=== PATIENT | male | born 1960 | race Caucasian/White ===

== ENCOUNTER 2016-09-29 22:42 | Inpatient (IN) | payer SELFPAY ==
[2016-09-29] MEDS ORDERED: Sodium Chloride 0.9% 1000 ML 1,000 ML IV STA ×2 (22:58→23:14)
[2016-09-29] MEDS ORDERED: DUONEB 0.5-3 MG/3 ml Neb IH ONE ×2 (22:59→23:14)
[2016-09-29] MEDS ORDERED: Sodium Chloride 0.9% 1000 ML 1,000 ML ONE ×2 (23:03→23:20)
[2016-09-29 23:04] LABS: Mean Corpuscular Hemoglobin 29.8 pg (26-32); Mean Platelet Volume 9.3 fl (6-9.5); Platelet Count 345 K/mm3 (150-450); Red Blood Count 4.77 M/mm3 (4.1-5.6); Red Cell Distribution Width 13.8 % (11.5-14.0); White Blood Count 10.2 K/mm3 (4.0-10.5)
--- NOTE | 2016-09-29 23:05 | ERPHSYRPT ---
- History of Present Illness Time Seen by Provider: 09/29/16 22:54 Source: patient Exam Limitations: no limitations Patient Subjective Stated Complaint: Pt sts sick since Friday with increasing shortness of breath with exertion. Sts productive cough with brown sputum. Sts general malaise, cough, fever, chills, aches. Tylenol at home 0900. Hx of smoking x 40 years. Triage Nursing Assessment: Pt alert, oriented, answers questions appropriately. Skin pale, warm, dry. Resps non-labored. Pt able to transfer self wheelchair to bed. Steady gait noted. Lung sound diminished bases bilat with rhonchi rt upper and lower lobes. SPO2 90% room air. Physician History: 56-year-old white male with history of high blood pressure. Arrives with complaint of cough productive of brown sputum short of breath worse with activity fever symptoms for 2-3 days. Patient states "I feel sick. Past medical history includes high blood pressure. Past surgical history negative. Social history positive for tobacco use. Timing/Duration: day(s) (2-3 days) Severity: moderate Modifying Factors: Improves With: nothing Associated Symptoms: shortness of breath, cough, fever, No nausea, No vomiting, No abdominal pain, No heartburn, No diaphoresis, No chills, No chest pain, No headaches, No loss of appetite, No malaise, No rash, No syncope Allergies/Adverse Reactions: Penicillins Allergy (Verified 09/29/16 22:54) Home Medications: Aspirin 81 mg PO DAILY 09/29/16 [History] Cetirizine HCl [Zyrtec] 10 mg PO HS 09/29/16 [History] Diltiazem HCl [Cardizem Cd] 120 mg PO DAILY 09/29/16 [History] Losartan Potassium 50 mg PO HS 09/29/16 [History] Trazodone HCl 100 mg PO HS 09/29/16 [History] Hx Tetanus, Diphtheria Vaccination/Date Given: Yes Hx Influenza Vaccination/Date Given: No Hx Pneumococcal Vaccination/Date Given: No - Review of Systems Constitutional: Fever, Malaise, Weakness, No Chills, No Fatigue, No Lethargy, No Night Sweats, No Weight Loss Eyes: No Symptoms Ears, Nose, & Throat: No Symptoms Respiratory: Cough, Dyspnea, Dyspnea on Exertion (KAUR), No Cyanosis, No Stridor , No Wheezing Cardiac: No Chest Pain, No Edema, No Syncope Abdominal/Gastrointestinal: No Abdominal Pain, No Nausea, No Vomiting, No Diarrhea Genitourinary Symptoms: No Dysuria Musculoskeletal: No Back Pain, No Neck Pain Skin: No Rash Neurological: No Dizziness, No Focal Weakness, No Sensory Changes Psychological: No Symptoms Endocrine: No Symptoms All Other Systems: Reviewed and Negative - Past Medical History Pertinent Past Medical History: Yes Cardiac History: Hypertension Other Medical History: allergies - Past Surgical History Past Surgical History: No - Social History Smoking Status: Current every day smoker How long have you smoked: 40 yrs Exposure to second hand smoke: No Drug Use: none Patient Lives Alone: No - Nursing Vital Signs Nursing Vital Signs: Initial Vital Signs Temperature 100.3 F Temperature Source Oral Pulse Rate 89 Respiratory Rate 24 Blood Pressure [Right Arm] 121/70 Pain Intensity 8 - Physical Exam General Appearance: moderate distress, other (well-developed well-nourished white male, alert, oriented x 3) Eye Exam: PERRL/EOMI, eyes nml inspection Ears, Nose, Throat Exam: normal ENT inspection, TMs normal, moist mucous membranes, pharyngeal erythema Neck Exam: normal inspection, non-tender, supple, full range of motion Respiratory Exam: diminished breath sounds, wheezing, No chest tenderness, No lungs clear Cardiovascular Exam: regular rate/rhythm (we'll probably do), normal heart sounds, normal peripheral pulses Gastrointestinal/Abdomen Exam: soft, normal bowel sounds, No tenderness, No mass Back Exam: normal inspection, normal range of motion, No CVA tenderness, No vertebral tenderness Extremity Exam: normal inspection, normal range of motion, pelvis stable Neurologic Exam: alert, oriented x 3, cooperative, normal mood/affect, nml cerebellar function, nml station & gait, sensation nml, No motor deficits Skin Exam: normal color, warm, dry, No rash Lymphatic Exam: No adenopathy SpO2 Interpretation: borderline oxygenation (90%) SpO2: 90 Oxygen Delivery: Room Air - Course Nursing assessment & vital signs reviewed: Yes EKG Interpreted by Me: RATE (99 bpm), Sinus Rhythm, NORMAL AXIS, Other (EKG: Sinus rhythm 99 bpm normal axis. No acute ST or T wave changes noted) - Radiology Exams Chest X-ray Interpretation: Interpreted by me, Other (chest x-ray: Large right middle lobe and right upper lobe infiltrate) Ordered Tests: Active Orders 24 hr Category Date Time Status Bedrest with BRP/BSC ROUTINE Activity 09/30/16 00:56 Active Admission/Status Order ROUTINE Care 09/30/16 00:56 Active Call Admit Doctor for Orders ON ADMISSION Care 09/30/16 00:56 Active Hand Flatwork Finisher STAT Care 09/29/16 22:57 Completed Clean Catch Urine Specimen STAT Care 09/30/16 00:26 Completed Code Status Order ROUTINE Care 09/30/16 00:56 Active EKG-ER Only STAT Care 09/29/16 22:56 Completed IV Care Q6H Care 09/30/16 00:56 Active IV Insertion STAT Care 09/29/16 22:58 Completed IV Insertion STAT Care 09/29/16 23:00 Completed Oxygen-ED Only NASAL CANNULA 4 lpm Care 09/29/16 23:37 Completed Pulse Oximetry (ED) STAT Care 09/29/16 22:57 Completed Saline Lock STAT Care 09/29/16 22:57 Completed Telemetry ROUTINE Care 09/30/16 00:56 Active Weight,Daily 0600 Care 09/30/16 00:56 Active Regular Diet Diet 09/30/16 Breakfast Active CHEST 1 VIEW (PORTABLE) Stat Exams 09/29/16 22:57 Taken BLOOD CULTURE Stat Lab 09/29/16 23:07 Received CBC W DIFF AM.LAB Lab 09/30/16 04:00 Ordered CBC W DIFF Stat Lab 09/29/16 22:45 Completed CMP AM.LAB Lab 09/30/16 04:00 Ordered CMP Stat Lab 09/29/16 22:45 Completed CULTURE, THROAT Stat Lab 09/29/16 23:15 Received CULTURE,URINE Stat Lab 09/29/16 22:57 Received Lactic Acid Stat Lab 09/29/16 22:57 Completed Lactic Acid Urgent Lab 09/30/16 00:56 Ordered Manual Differential NC Stat Lab 09/29/16 22:45 Completed NT PRO BNP Stat Lab 09/29/16 22:45 Completed PROTIME WITH INR Stat Lab 09/29/16 22:45 Completed PTT Stat Lab 09/29/16 22:45 Completed STREP SCREEN-BETA A Stat Lab 09/29/16 23:15 Completed TROPONIN Stat Lab 09/29/16 22:45 Completed UA W/ MICROSCOPIC Stat Lab 09/30/16 00:20 Completed VENOUS BLOOD GAS Stat Lab 09/29/16 22:58 Completed Oxygen NASAL CANNULA 4 lpm RT 09/30/16 00:56 Active Respiratory Nebulizer STAT RT 09/29/16 23:00 Completed Transfer Order Routine Transfer 09/30/16 00:07 Completed Medication Summary Generic Name Dose Route Start Last Admin Trade Name Serafin PRN Reason Stop Dose Admin Acetaminophen 650 mg 09/30/16 00:56 Tylenol 325 Mg PO 10/30/16 00:55 Q4H PRN PRN PAIN AND/OR FEVER Hydrocodone Bitart/Acetaminophen 1 tab 09/30/16 01:03 [place] 5/325 Mg PO 10/05/16 01:02 Q4H PRN PRN PAIN Albuterol/Ipratropium 3 ml 09/30/16 00:56 Duoneb 0.5-3 Mg/3 Ml Neb IH 10/30/16 00:55 Q4HPRN PRN SHORTNESS OF BREATH/WHEEZING Azithromycin 500 mg in 250 mls @ 250 mls/hr 09/30/16 10:00 09/30/16 01:13 Zithromax 500 Mg/ 250 Ml Nacl Premix IV 10/30/16 09:59 250 mls/hr Q24H10 REFUGIO Administration Piperacillin Sod/Tazobactam Sod 3.375 gm in 100 mls @ 200 mls/hr 09/30/16 06: 00 Zosyn 3.375gm/100 Ml D5w IV 10/30/16 05:59 Q6HT REFUGIO Sodium Chloride 1,000 mls @ 125 mls/hr 09/30/16 00:56 09/30/16 01:05 Sodium Chloride 0.9% 1000 Ml IV 10/30/16 00:55 125 mls/hr .Q8H REFUGIO Administration Discontinued Medications Generic Name Dose Route Start Last Admin Trade Name Serafin PRN Reason Stop Dose Admin Hydrocodone Bitart/Acetaminophen Confirm 09/30/16 00:33 [place] 5/325 Mg Administered 09/30/16 00:34 Dose 1 tab .ROUTE .STK-MED ONE Albuterol/Ipratropium 3 ml 09/29/16 22:59 09/29/16 23:17 Duoneb 0.5-3 Mg/3 Ml Neb IH 09/29/16 23:00 3 ml STAT ONE Administration Albuterol/Ipratropium Confirm 09/29/16 23:14 Duoneb 0.5-3 Mg/3 Ml Neb Administered 09/29/16 23:15 Dose 3 ml IH .STK-MED ONE Sodium Chloride 1,000 mls @ 999 mls/hr 09/29/16 22:58 09/29/16 23:04 Sodium Chloride 0.9% 1000 Ml IV 09/29/16 23:58 999 mls/hr .Q1H1M STA Administration Sodium Chloride Confirm 09/29/16 23:03 Sodium Chloride 0.9% 1000 Ml Administered 09/29/16 23:04 Dose 1,000 mls @ ud .ROUTE .STK-MED ONE Sodium Chloride 1,000 mls @ 999 mls/hr 09/29/16 23:14 09/29/16 23:20 Sodium Chloride 0.9% 1000 Ml IV 09/30/16 00:14 999 mls/hr .Q1H1M STA Administration Sodium Chloride Confirm 09/29/16 23:20 Sodium Chloride 0.9% 1000 Ml Administered 09/29/16 23:21 Dose 1,000 mls @ ud .ROUTE .STK-MED ONE Piperacillin Sod/Tazobactam Sod 3.375 gm in 100 mls @ 200 mls/hr 09/29/16 23: 33 09/29/16 23:47 Zosyn 3.375gm/100 Ml D5w IV 09/30/16 00:02 200 mls/hr STAT STA Administration Piperacillin Sod/Tazobactam Sod Confirm 09/29/16 23:43 Zosyn 3.375gm/100 Ml D5w Administered 09/29/16 23:44 Dose 3.375 gm in 100 mls @ ud IV .STK-MED ONE Lab/Rad Data: Laboratory Result Diagrams 09/29/16 22:45 09/29/16 22:45 Laboratory Results 09/30/16 09/29/16 09/29/16 Range/Units 00:20 23:15 22:58 WBC (4.0-10.5) K/mm3 RBC (4.1-5.6) M/mm3 Hgb (12.5-18.0) gm/dl Hct (42-50) % MCV (78-100) fl MCH (26-32) pg MCHC (32-36) g/dl RDW (11.5-14.0) % Plt Count (150-450) K/mm3 MPV (6-9.5) fl Segmented Neutrophils (36.-66.) % Lymphocytes (Manual) (24-44) % Monocytes (Manual) (0.0-12.0) % Eosinophils (Manual) (0.00-3.0) % Differential Comment Atypical Lymphocytes % Platelet Estimate (NORMAL) INR (0.8-3.0) APTT (24.1-36.1) SECONDS VBG pH 7.30 L (7.32-7.42) VBG pCO2 at Pat Temp 55 (42-55) mm/Hg VBG pO2 at Pat Temp 14 L (25-40) mm/Hg VBG HCO3 27.1 (22-28) meq/L VBG O2 Sat (Otilia) 19.5 L (95-100) VBG Base Excess -0.5 (-2.0-2.0) VBG Hemoglobin 15.2 VBG Carboxyhemoglobin 1.7 (0.0-6.9) % T HGB POC Potassium 5.4 H (3.5-5.1) Sodium (136-145) mEq/L Potassium (3.5-5.1) mEq/L Chloride (98-107) mEq/L Carbon Dioxide (21-32) mEq/L Anion Gap (5-15) MEQ/L BUN (9-20) mg/dL Creatinine (0.55-1.30) mg/dl Estimated GFR ML/MIN Glucose (70-110) MG/DL Lactic Acid (0.4-2.0) Calcium (8.5-10.1) mg/dL Total Bilirubin (0.2-1.0) mg/dL AST (15-37) U/L ALT (12-78) U/L Alkaline Phosphatase (46-116) U/L Troponin I (0.000-0.056) ng/ml NT-Pro-B Natriuret Pep (0-125) pg/ml Serum Total Protein (6.4-8.2) gm/dL Albumin (3.4-5.0) g/dL Ur Collection Type CLEAN CATCH Urine Color CHRISTEL (YELLOW) Urine Appearance SLIGHTLY CLOUDY (CLEAR) Urine pH 5.0 (5-6) Ur Specific [place] 1.015 (1.005-1.025) Urine Protein 30 (Negative) Urine Ketones NEGATIVE (NEGATIVE) Urine Blood 250 (0-5) Steve/ul Urine Nitrite NEGATIVE (NEGATIVE) Urine Bilirubin NEGATIVE (NEGATIVE) Urine Urobilinogen NORMAL (0-1) mg/dL Ur Leukocyte Esterase TRACE (NEGATIVE) Urine Microscopic RBC 10-15 (0-2) /HPF Urine Microscopic WBC 2-5 (0-5) /HPF Ur Epithelial Cells MODERATE (FEW) /HPF Urine Bacteria FEW (NEGATIVE) /HPF Hyaline Casts 2-5 (0-2) /LPF Urine Mucus MODERATE (NEGATIVE) /HPF Urine Glucose NEGATIVE (NEGATIVE) mg/dL Streptococcus Screen NEGATIVE (Negative) Specimen Received 09/30/16:0020 09/29/16 09/29/16 09/29/16 Range/Units 22:57 22:45 22:45 WBC (4.0-10.5) K/mm3 RBC (4.1-5.6) M/mm3 Hgb (12.5-18.0) gm/dl Hct (42-50) % MCV (78-100) fl MCH (26-32) pg MCHC (32-36) g/dl RDW (11.5-14.0) % Plt Count (150-450) K/mm3 MPV (6-9.5) fl Segmented Neutrophils (36.-66.) % Lymphocytes (Manual) (24-44) % Monocytes (Manual) (0.0-12.0) % Eosinophils (Manual) (0.00-3.0) % Differential Comment Atypical Lymphocytes % Platelet Estimate (NORMAL) INR 1.52 (0.8-3.0) APTT 32.1 (24.1-36.1) SECONDS VBG pH (7.32-7.42) VBG pCO2 at Pat Temp (42-55) mm/Hg VBG pO2 at Pat Temp (25-40) mm/Hg VBG HCO3 (22-28) meq/L VBG O2 Sat (Otilia) (95-100) VBG Base Excess (-2.0-2.0) VBG Hemoglobin VBG Carboxyhemoglobin (0.0-6.9) % T HGB POC Potassium (3.5-5.1) Sodium 139 (136-145) mEq/L Potassium 5.5 H (3.5-5.1) mEq/L Chloride 101 (98-107) mEq/L Carbon Dioxide 26.6 (21-32) mEq/L Anion Gap 16.5 H (5-15) MEQ/L BUN 34 H (9-20) mg/dL Creatinine 2.77 H (0.55-1.30) mg/dl Estimated GFR 25 ML/MIN Glucose 96 (70-110) MG/DL Lactic Acid 4.6 H (0.4-2.0) Calcium 9.3 (8.5-10.1) mg/dL Total Bilirubin 0.70 (0.2-1.0) mg/dL AST 13 L (15-37) U/L ALT 15 (12-78) U/L Alkaline Phosphatase 79 (46-116) U/L Troponin I < 0.017 (0.000-0.056) ng/ml NT-Pro-B Natriuret Pep 3689 H (0-125) pg/ml Serum Total Protein 7.4 (6.4-8.2) gm/dL Albumin 2.9 L (3.4-5.0) g/dL Ur Collection Type Urine Color (YELLOW) Urine Appearance (CLEAR) Urine pH (5-6) Ur Specific [place] (1.005-1.025) Urine Protein (Negative) Urine Ketones (NEGATIVE) Urine Blood (0-5) Steve/ul Urine Nitrite (NEGATIVE) Urine Bilirubin (NEGATIVE) Urine Urobilinogen (0-1) mg/dL Ur Leukocyte Esterase (NEGATIVE) Urine Microscopic RBC (0-2) /HPF Urine Microscopic WBC (0-5) /HPF Ur Epithelial Cells (FEW) /HPF Urine Bacteria (NEGATIVE) /HPF Hyaline Casts (0-2) /LPF Urine Mucus (NEGATIVE) /HPF Urine Glucose (NEGATIVE) mg/dL Streptococcus Screen (Negative) Specimen Received 09/29/16 Range/Units 22:45 WBC 10.2 (4.0-10.5) K/mm3 RBC 4.77 (4.1-5.6) M/mm3 Hgb 14.2 (12.5-18.0) gm/dl Hct 43.9 (42-50) % MCV 92.0 (78-100) fl MCH 29.8 (26-32) pg MCHC 32.3 (32-36) g/dl RDW 13.8 (11.5-14.0) % Plt Count 345 (150-450) K/mm3 MPV 9.3 (6-9.5) fl Segmented Neutrophils 86 H (36.-66.) % Lymphocytes (Manual) 6 L (24-44) % Monocytes (Manual) 5 (0.0-12.0) % Eosinophils (Manual) 1 (0.00-3.0) % Differential Comment NORMAL Atypical Lymphocytes 2 % Platelet Estimate NORMAL (NORMAL) INR (0.8-3.0) APTT (24.1-36.1) SECONDS VBG pH (7.32-7.42) VBG pCO2 at Pat Temp (42-55) mm/Hg VBG pO2 at Pat Temp (25-40) mm/Hg VBG HCO3 (22-28) meq/L VBG O2 Sat (Otilia) (95-100) VBG Base Excess (-2.0-2.0) VBG Hemoglobin VBG Carboxyhemoglobin (0.0-6.9) % T HGB POC Potassium (3.5-5.1) Sodium (136-145) mEq/L Potassium (3.5-5.1) mEq/L Chloride (98-107) mEq/L Carbon Dioxide (21-32) mEq/L Anion Gap (5-15) MEQ/L BUN (9-20) mg/dL Creatinine (0.55-1.30) mg/dl Estimated GFR ML/MIN Glucose (70-110) MG/DL Lactic Acid (0.4-2.0) Calcium (8.5-10.1) mg/dL Total Bilirubin (0.2-1.0) mg/dL AST (15-37) U/L ALT (12-78) U/L Alkaline Phosphatase (46-116) U/L Troponin I (0.000-0.056) ng/ml NT-Pro-B Natriuret Pep (0-125) pg/ml Serum Total Protein (6.4-8.2) gm/dL Albumin (3.4-5.0) g/dL Ur Collection Type Urine Color (YELLOW) Urine Appearance (CLEAR) Urine pH (5-6) Ur Specific [place] (1.005-1.025) Urine Protein (Negative) Urine Ketones (NEGATIVE) Urine Blood (0-5) Steve/ul Urine Nitrite (NEGATIVE) Urine Bilirubin (NEGATIVE) Urine Urobilinogen (0-1) mg/dL Ur Leukocyte Esterase (NEGATIVE) Urine Microscopic RBC (0-2) /HPF Urine Microscopic WBC (0-5) /HPF Ur Epithelial Cells (FEW) /HPF Urine Bacteria (NEGATIVE) /HPF Hyaline Casts (0-2) /LPF Urine Mucus (NEGATIVE) /HPF Urine Glucose (NEGATIVE) mg/dL Streptococcus Screen (Negative) Specimen Received - Progress Progress: improved Progress Note: 09/29/16 23:58 This is a 56-year-old white male with history of high blood pressure arrives with complaint of cough productive of brown sputum shortness of breath general malaise fever symptoms going on for 2-3 days. On arrival patient oxygenation is 90% on room air he has a temperature of 100.1 blood pressure is 95/60 he has rhonchi throughout his lung tony wheezes and somewhat diminished breath sounds. Patient is given albuterol treatment CBC CMP lactate venous gases blood cultures UA INR PT PTT obtained per sepsis protocol. Patient begun on IV normal saline 2 L of normal saline were ordered. Patient was given DuoNeb treatment after blood cultures are obtained patient is given Zosyn 3.375 mg IV. Patient appears to be improving. Chest x-ray on this patient shows a large right middle lobe right upper lobe infiltrate. Patient is noted to have a lactate of 4.6. Case is discussed with Dr. Pineda who is geographic information system analyst for Dr. Wei will place patient on ICU continue IV fluids continue Zosyn continue duo neb. Anticipate lactate 2 hours after last draw. 09/30/16 00:21 Dr. Pineda called back and asked that patient be placed on Zithromax as well. Patient has already been given Zosyn. Will write continuing Zosyn on the floor every 6 hours and Zithromax 500 mg IV every 24 hours. Will write for IV normal saline write for DuoNeb every 4 hours. Repeat lactate is scheduled for 1:00. 09/30/16 01:21 Patient's vitals are reassessed by the patient's nurse at 23:50 Patient's temperature 100.3 heart rate 101 blood pressure 107/77 respiratory rate 92% oxygen 94% on 4 L. Patient has good capillary refill and he is in no acute distress on recheck. - Departure Time of Disposition: 00:02 Departure Disposition: In-patient Admission Clinical Impression: Shortness of breath Pneumonia Qualifiers: Pneumonia type: due to unspecified organism Laterality: right Lung location: unspecified part of lung Qualified Code(s): J18.9 - Pneumonia, unspecified organism Sepsis Qualifiers: Sepsis type: sepsis due to unspecified organism Qualified Code(s): A41.9 - Sepsis, unspecified organism Condition: Fair Critical Care Time: Yes Critical Care Time(excluding separately billable procedures): 30-74 minutes
[2016-09-29 23:11] LABS: Lactic Acid 4.6 (0.4-2.0)
[2016-09-29 23:12] LABS: VBG BASE EXCESS -0.5 (-2.0-2.0); VBG CARBOXYHEMOGLOBIN 1.7 % T HGB (0.0-6.9); VBG HCO3- 27.1 meq/L (22-28); VBG HEMOGLOBIN 15.2; VBG O2 SATURATION 19.5 (95-100); VBG POTASSIUM 5.4 (3.5-5.1); VBG pH 7.3 (7.32-7.42)
[2016-09-29 23:15] LABS: INR 1.52 (0.8-3.0); PROTIME 17.3 SECONDS (8.83-12.87)
[2016-09-29 23:18] LABS: PTT 32.1 SECONDS (24.1-36.1)
[2016-09-29 23:30] LABS: ALBUMIN 2.9 g/dL (3.4-5.0); ALKALINE PHOSPHATASE 79 U/L (46-116); ANION GAP 16.5 MEQ/L (5-15); BLOOD UREA NITROGEN 34 mg/dL (9-20); CHLORIDE 101 mEq/L (98-107); Carbon Dioxide 26.6 mEq/L (21-32); Glucose 96 MG/DL (70-110); Potassium 5.5 mEq/L (3.5-5.1); SGOT/AST 13 U/L (15-37); SGPT/ALT 15 U/L (12-78); SODIUM 139 mEq/L (136-145); Total Protein 7.4 gm/dL (6.4-8.2)
[2016-09-29] MEDS ORDERED: Zosyn 3.375GM/100 Ml D5W 3.375 GM/100 ML IVPB IV STA (23:33)
[2016-09-29] MEDS ORDERED: Zosyn 3.375GM/100 Ml D5W 3.375 GM/100 ML IVPB IV ONE (23:43)
[2016-09-29 23:44] LABS: TROPONIN < 0.017 ng/ml (0.000-0.056)
[2016-09-29 23:54] LABS: ATYPICAL LYMPHS 2 %; Eosinophil 1 % (0.00-3.0); Platelet Estimate NORMAL (NORMAL); Total Cells Counted 100
[2016-09-30 00:33] LABS: Bacteria FEW /HPF (NEGATIVE); Bilirubin NEGATIVE (NEGATIVE); Blood 250 Ery/ul (0-5); COMPLETE URINE MICROSCOPIC? YES; Collection Type CLEAN CATCH; Epithelial Cells MODERATE /HPF (FEW); Glucose NEGATIVE (NEGATIVE); Leukocyte Esterase TRACE (NEGATIVE); Mucus MODERATE /HPF (NEGATIVE)
[2016-09-30] MEDS ORDERED: NORCO 5/325 MG ONE (00:33)
[2016-09-30] MEDS ORDERED: DUONEB 0.5-3 MG/3 ml Neb IH PRN (00:56)
[2016-09-30] MEDS ORDERED: Sodium Chloride 0.9% 1000 ML 1,000 ML IV SCH ×2 (00:56→01:45)
[2016-09-30] MEDS ORDERED: Zithromax 500 MG/ 250 ML NaCl Premix 500 MG/250 ML IVPB IV ONE (01:11)
[2016-09-30 01:18] LABS: A-aADO2 601; ALLEN TEST OK? YES; ARTERIAL BLD GAS O2 SATURATION 93.8 % (95-100); ARTERIAL BLOOD GAS BASE EXCESS -1.8 (-2.0-2.0); ARTERIAL BLOOD GAS FIO2 100 %; ARTERIAL BLOOD GAS PO2 60 mmHg (75-100); ARTERIAL BLOOD GAS pH 7.36 (7.35-7.45)
[2016-09-30] MEDS: TYLENOL 325 MG PO PRN ×2 (01:57→11:47)
[2016-09-30] MEDS ORDERED: Zosyn 3.375GM/100 Ml D5W 3.375 GM/100 ML IVPB IV ONE (05:25)
[2016-09-30] MEDS ORDERED: PROTONIX 40 MG IV IV SCH (05:45)
[2016-09-30] MEDS ORDERED: solu-CORTEF 100MG IV SCH (05:45)
[2016-09-30 05:48] LABS: Mean Cell Volume 92.4 fl (78-100); Mean Corpuscular Hemoglobin 29.8 pg (26-32); Mean Platelet Volume 9.7 fl (6-9.5); Platelet Count 304 K/mm3 (150-450); Red Blood Count 4.09 M/mm3 (4.1-5.6); Red Cell Distribution Width 13.8 % (11.5-14.0); White Blood Count 8.9 K/mm3 (4.0-10.5)
--- NOTE | 2016-09-30 05:51 | PCM.HP ---
History of Present Illness - Chief Complaint Chief Complaint: Shortness of Breath, pneunmonia Date: 09/30/16 History of Present Illness: is a 56 year old male. with history of hypertension who has been devloping increaseing cough and weakness productive of rust colored sputum starting friday very weak and fatigued and short of breath eventually allowed his to bring him to ED last night. No previous pneumonia no recent travel. - Review of Systems Constitutional: Fever, Chills, Fatigue, Lethargy Eyes: No Symptoms Ears, Nose, & Throat: No Symptoms Respiratory: Cough, Short Of Breath Cardiac: No Chest Pain, No Edema, No Syncope Abdominal/Gastrointestinal: No Abdominal Pain, No Nausea, No Vomiting, No Diarrhea Genitourinary Symptoms: No Dysuria Musculoskeletal: No Back Pain, No Neck Pain Skin: No Rash Neurological: No Dizziness, No Focal Weakness, No Sensory Changes Psychological: No Symptoms Endocrine: No Symptoms Hematologic/Lymphatic: No Symptoms Immunological/Allergic: No Symptoms Medications & Allergies Home Medications: Home Medication List Aspirin 81 mg PO DAILY 09/29/16 [History Confirmed 09/29/16] Cetirizine HCl [Zyrtec] 10 mg PO HS 09/29/16 [History Confirmed 09/29/16] Diltiazem HCl [Cardizem Cd] 120 mg PO DAILY 09/29/16 [History Confirmed 09/29/16 ] Losartan Potassium 50 mg PO HS 09/29/16 [History Confirmed 09/29/16] Trazodone HCl 100 mg PO HS 09/29/16 [History Confirmed 09/29/16] Allergies/Adverse Reactions: Allergies Allergy/AdvReac Type Severity Reaction Status Date / Time Penicillins Allergy Verified 09/29/16 22:54 - Past Medical History Past Medical History: Yes Cardiac History: Hypertension Comment: allergies - Past Surgical History Past Surgical History: No - Social History Smoking Status: Current every day smoker How long have you smoked: 40 yrs Exposure to second hand smoke: No Alcohol: None Drug Use: none - Physical Exam Vital Signs: Vital Signs - 24 hr Temp Pulse Resp BP Pulse Ox 09/30/16 04:54 78 18 95 09/30/16 04:48 89/56 09/30/16 04:16 81/51 09/30/16 04:00 99.0 F 101 H 21 80/54 97 09/30/16 03:29 79 18 95 09/30/16 01:54 112 H 20 99 09/30/16 01:24 90 L 09/30/16 01:22 102.0 F 103 H 26 H 100/70 92 L 09/30/16 00:28 89 24 121/70 94 L 09/29/16 23:50 100.3 F 101 H 22 107/77 94 L 09/29/16 23:33 110 H 24 93/56 94 L 09/29/16 23:20 102 H 26 H 90 L 09/29/16 22:57 90 L 09/29/16 22:53 20 90 L 09/29/16 22:43 100.1 F 102 H 20 95/60 90 L Oxygen-Last 24 hours O2 Percentage 50% O2 Percentage 100% O2 Percentage 4 Liters = 36% O2 Percentage 4 Liters = 36% O2 Percentage 4 Liters = 36% O2 Percentage 4 Liters = 36% General Appearance: mild distress, alert, other (On bipap) Neurologic Exam: alert, oriented x 3, cooperative, normal mood/affect, nml cerebellar function, nml station & gait, sensation nml, No motor deficits Eye Exam: PERRL/EOMI, eyes nml inspection Ears, Nose, Throat Exam: normal ENT inspection, TMs normal, pharynx normal, moist mucous membranes Neck Exam: normal inspection, non-tender, supple, full range of motion Respiratory Exam: respiratory distress, crackles/rales (on right crackles and couars rhonchi and wheezing clear on the left) Cardiovascular Exam: regular rate/rhythm, normal heart sounds, normal peripheral pulses Gastrointestinal/Abdomen Exam: soft, normal bowel sounds, No tenderness, No mass Back Exam: normal inspection, normal range of motion, No CVA tenderness, No vertebral tenderness Extremity Exam: normal inspection, normal range of motion, pelvis stable Skin Exam: normal color, warm, dry, No rash Lymphatic Exam: No adenopathy Results - Labs Lab/Micro Results: Lab Results-Last 24 Hours 09/30/16 09/30/16 Range/Units 01:10 01:15 Puncture Site RIGHT RADIAL pCO2 42 (35-45) mmHg pO2 60 L (75-100) mmHg Base Excess -1.8 (-2.0-2.0) O2 Saturation 90.8 L (94-100) g/dF ABG pH 7.36 (7.35-7.45) ABG HCO3 23.7 (22-28) ABG O2 Sat (Measured) 93.8 L (95-100) % Martin Test YES A-a Gradient 601 a/A Ratio 0.09 Hemoglobin 12.7 Carboxyhemoglobin 2.1 (0.0-6.9) % THgb Methemoglobin 1.1 L (1.4-1.5) % Potassium 4.4 (3.5-5.1) Temperature 37.0 C POC O2 Flow Rate 100 % Lactic Acid 2.5 H (0.4-2.0) - Other Procedures and Tests Respiratory Therapy 09/30/16 01:54 BiPap/CPAP Assessment ROUTINE 09/30/16 03:29 neb [Respiratory Nebulizer] UD Assessment/Plan (1) Pneumonia Current Visit: Yes Status: Acute Qualifiers: Pneumonia type: due to unspecified organism Laterality: right Lung location: upper lobe of lung Qualified Code(s): J18.1 - Lobar pneumonia, unspecified organism Assessment & Plan: community acquired in smoker right upper lobe with severe sepsis with resulting acute kidney injury and lactic acidosis. CXR reviewed with large Right upper lobe round pneumonia vs mass initial worsened respiratory status after 30 mL/kg bolus and fluids were briefly held overnight and patient on bipap. He is tolerating bipap well with FiO2 at 50%. He had bp drop and responded to an additional 500 ml bolus normal saline. and restarted NS at 100 mL/h and MAP is currently 74. HR 100. He has good cap refill warm extremities and no edema there is no evidence of crackles on the left continue fluid bolus as tolerated Pereira for accurate I/O to be placed now he has only had 225 mL urine output dark urine in the last approximately 5 hours with the boluses. will give additional 500 mL bolus of LR change fluid to D5 1/2NS at 100mL/h repeat abg and lactic acid now and will write for repeat lactic acid and bmp for 6 hours from now add hydrocortisone for severe sepsis at 50 mg IV q6h Patient has history of hives with penicillin will change zosyn to ceftriaxone he has received 2 doses of zosyn first in ED and just finished first on floor continue the Azithromycin he has no evidence of allergic reaction at this time. He reports he thinks he has taken keflex before with no problem. add lovenox for dvt ppx and protonix for Gi ppx on steroid and lovenox The critical nature of his current illness was discussed in detail with the patient and his at bedside. The noted the patient is actually a Dr. Saucedo patient and sees him for his medical care and requested Dr. Saucedo on admission and for some reason the ER called me and placed him under Dr. Wei. Will do the above to stabilize and transfer care now to his PCP Dr. Saucedo. Code(s): J18.9 - PNEUMONIA, UNSPECIFIED ORGANISM (2) Sepsis Current Visit: Yes Status: Acute Qualifiers: Sepsis type: sepsis due to unspecified organism Qualified Code(s): A41.9 - Sepsis, unspecified organism (3) Acute kidney injury Current Visit: Yes Status: Acute Code(s): N17.9 - ACUTE KIDNEY FAILURE, UNSPECIFIED (4) Lactic acidosis Current Visit: Yes Status: Acute Code(s): E87.2 - ACIDOSIS
[2016-09-30] MEDS ORDERED: Lactated Ringers 500 ML IV ONE (05:54)
[2016-09-30] MEDS ORDERED: Zosyn 3.375GM/100 Ml D5W 3.375 GM/100 ML IVPB IV SCH (06:00)
[2016-09-30] MEDS ORDERED: Dextrose 5% -0.45 NaCl 1000 ML 1,000 ML IV SCH (06:00)
[2016-09-30 06:06] LABS: ALBUMIN 2.4 g/dL (3.4-5.0); ANION GAP 14.3 MEQ/L (5-15); BILIRUBIN,TOTAL 0.5 mg/dL (0.2-1.0); Carbon Dioxide 24.5 mEq/L (21-32); Total Protein 6.3 gm/dL (6.4-8.2)
[2016-09-30 06:10] LABS: A-aADO2 388; ARTERIAL BLD GAS O2 SATURATION 97.8 % (95-100); ARTERIAL BLOOD GAS FIO2 75 %; ARTERIAL BLOOD GAS PO2 91 mmHg (75-100); ARTERIAL BLOOD GAS pH 7.32 (7.35-7.45); BIPAP(E) 6; BIPAP(I) 12; Lactic Acid 2.5 (0.4-2.0)
[2016-09-30] MEDS ORDERED: Lactated Ringers 1,000 ML IV ONE (06:10)
[2016-09-30] MEDS ORDERED: solu-CORTEF 100MG ONE (06:10)
[2016-09-30] MEDS ORDERED: PROTONIX 40 MG IV IV ONE (06:10)
[2016-09-30 06:11] LABS: ALLEN TEST OK? YES
[2016-09-30] MEDS: DUONEB 0.5-3 MG/3 ml Neb IH SCH ×5 (06:43→22:57)
[2016-09-30 07:18] LABS: BAND 11 % (0.0-2.0); Platelet Estimate NORMAL (NORMAL); Total Cells Counted 100; Toxic Granulation 2+
[2016-09-30] MEDS: NORCO 5/325 MG PO PRN ×2 (08:37→14:17)
--- NOTE | 2016-09-30 08:43 | XRAY ---
Exam: AP portable chest film from 2301 hrs. on 09/29/2016. Comparison: Two-view chest from 08/09/2014. Indication: Fever, chills, possible sepsis. Findings: The transverse heart size is normal. There is a new, large, dense air space infiltrate occupying the upper two thirds of the right lung, although I see some mild aeration interspersed within the right lung apex. The infiltrate is most dense within the middle third of the right lung. A stable calcified granuloma is seen at the right lung base. The left lung remains clear. Respiratory tubing overlies the left lung apex. No central vascular congestion, pneumothorax, or pleural fluid is seen. The bones appear unremarkable. Impression: 1. Large, dense air space infiltrate within the right midlung field and, to a lesser extent, the right lung apex representing an unfavorable change from 08/09/2014. The appearance is most consistent with pneumonia. However, I would not be able to exclude an underlying mass lesion. Follow-up films are recommended to document complete resolution.
[2016-09-30] MEDS: ENOXAPARIN SODIUM SQ SCH (09:55)
[2016-09-30] MEDS: ECOTRIN 81 MG PO SCH (09:55)
[2016-09-30] MEDS ORDERED: NON-FORMULARY ITEM (Aspirin [Aspirin] 81 MG) PO SCH (10:00)
[2016-09-30] MEDS ORDERED: Zithromax 500 MG/ 250 ML NaCl Premix 500 MG/250 ML IVPB IV SCH ×2 (10:00→22:00)
[2016-09-30] MEDS ORDERED: ROCEPHIN 2 Gm-D5w 50ML BAG** 2 G/50 ML IVPB IV SCH (10:00)
[2016-09-30 10:50] LABS: A-aADO2 365; ARTERIAL BLD GAS O2 SATURATION 98.7 % (95-100); ARTERIAL BLOOD GAS BASE EXCESS -4.1 (-2.0-2.0); ARTERIAL BLOOD GAS FIO2 75 %; ARTERIAL BLOOD GAS PO2 109 mmHg (75-100); ARTERIAL BLOOD GAS pH 7.28 (7.35-7.45); BIPAP(E) 6; BIPAP(I) 12
[2016-09-30 10:51] LABS: ALLEN TEST OK? YES
[2016-09-30] MEDS: Sodium Chloride 0.9% 1000 ML 1,000 ML IV SCH ×5 (11:32→20:57)
[2016-09-30] MEDS: solu-CORTEF 100MG IV SCH ×3 (11:48→22:58)
[2016-09-30 12:18] LABS: ANION GAP 18.1 MEQ/L (5-15); Carbon Dioxide 21.5 mEq/L (21-32); Potassium 4.8 mEq/L (3.5-5.1)
[2016-09-30 14:34] LABS: Lactic Acid 2.4 (0.4-2.0)
[2016-09-30 14:35] LABS: A-aADO2 370; ALLEN TEST OK? YES; ARTERIAL BLD GAS O2 SATURATION 98.9 % (95-100); ARTERIAL BLOOD GAS FIO2 75 %; ARTERIAL BLOOD GAS PO2 105 mmHg (75-100); ARTERIAL BLOOD GAS pH 7.27 (7.35-7.45); BIPAP(E) 6; BIPAP(I) 14
[2016-09-30] MEDS ORDERED: Naprosyn 500 MG ONE (18:20)
[2016-09-30] MEDS: TYLENOL 325 MG PO SCH (18:21)
[2016-09-30] MEDS: NAPROSYN 375 MG PO SCH (18:25)
[2016-09-30] MEDS ORDERED: NON-FORMULARY ITEM (Cetirizine Hcl [Zyrtec] 10 MG) PO SCH (22:00)
[2016-09-30] MEDS: CLARITIN 10 MG PO SCH (22:55)
[2016-09-30] MEDS ORDERED: CARDIZEM DRIP 100 MG/100 ML D5W 100 ML IV PRN (23:44)
[2016-09-30] MEDS: Sodium Chloride 0.9% 1000 ML 1,000 ML IV STA (23:59)
[2016-10-01] MEDS: Sodium Chloride 0.9% 1000 ML 1,000 ML IV STA ×2 (00:32→01:59)
[2016-10-01] MEDS: Sodium Chloride 0.9% 1000 ML 1,000 ML IV SCH ×7 (00:33→23:20)
[2016-10-01] MEDS ORDERED: Zofran 4 MG/2 ML VIAL IV PRN (01:37)
[2016-10-01] MEDS ORDERED: Sodium Chloride 0.9% 1000 ML 1,000 ML IV STA (01:39)
[2016-10-01] MEDS ORDERED: Naprosyn 500 MG ONE (03:09)
[2016-10-01] MEDS: TYLENOL 325 MG PO SCH ×3 (03:09→18:09)
[2016-10-01] MEDS: NAPROSYN 375 MG PO SCH ×3 (03:09→18:10)
[2016-10-01] MEDS: DUONEB 0.5-3 MG/3 ml Neb IH SCH ×5 (03:24→20:34)
[2016-10-01 05:31] LABS: A-aADO2 517; ARTERIAL BLD GAS O2 SATURATION 99.1 % (95-100); ARTERIAL BLOOD GAS BASE EXCESS -5.9 (-2.0-2.0); ARTERIAL BLOOD GAS PO2 150 mmHg (75-100); ARTERIAL BLOOD GAS pH 7.33 (7.35-7.45); Lactic Acid 2.3 (0.4-2.0)
[2016-10-01 05:32] LABS: ALLEN TEST OK? YES
[2016-10-01 05:33] LABS: ARTERIAL BLOOD GAS FIO2 100 %
[2016-10-01] MEDS ORDERED: solu-CORTEF 100MG ONE (05:58)
[2016-10-01] MEDS: solu-CORTEF 100MG IV SCH ×4 (06:33→23:24)
[2016-10-01 07:30] LABS: ALKALINE PHOSPHATASE 64 U/L (46-116); ANION GAP 18.3 MEQ/L (5-15); BLOOD UREA NITROGEN 33 mg/dL (9-20); CHLORIDE 110 mEq/L (98-107); Carbon Dioxide 19.1 mEq/L (21-32); Glucose 80 MG/DL (70-110); SGOT/AST 23 U/L (15-37); SODIUM 142 mEq/L (136-145); Total Protein 4.7 gm/dL (6.4-8.2)
[2016-10-01 07:33] LABS: Mean Corpuscular Hemoglobin 30.3 pg (26-32); Platelet Count 295 K/mm3 (150-450); Red Blood Count 3.43 M/mm3 (4.1-5.6); Red Cell Distribution Width 14.3 % (11.5-14.0)
[2016-10-01 07:51] LABS: SGPT/ALT 15 U/L (12-78)
[2016-10-01] MEDS ORDERED: PHARMACY DOSING REQUIRED: VANCOMYCIN IV ONE (09:26)
[2016-10-01] MEDS ORDERED: PHARMACY DOSING REQUEST MC ONE (09:26)
[2016-10-01] MEDS ORDERED: VANCOCIN 1 GM VIAL*** 1 GM in Sodium Chloride 0.9% 250 ML 250 ML IV ONE (10:15)
--- NOTE | 2016-10-01 10:27 | XRAY ---
Exam: Two-view chest from 10/01/2016. Comparison: AP portable chest film from 09/29/2016 and two-view chest from 08/09/2014. Indication: Right upper and midlung pneumonia. Findings: Upright PA and lateral chest films are submitted for evaluation. The heart size is normal. I still see dense consolidation within the right midlung field extending into the central aspect of the right upper lung field, but there is mildly improved aeration. Less pronounced infiltrative density is seen within the peripheral right upper lobe. However, I see new mild retrocardiac airspace disease which is probably due to left lower lobe atelectasis, although pneumonic infiltrate cannot be excluded. The left hemidiaphragm is now partially obscured representing an unfavorable change. The remainder of the left lung appears clear on the PA view. A small dense calcified granuloma is again seen at the right lung base. There is moderate to marked right apical pleural thickening/scarring. I believe there is mild posterior left basilar pleural effusion. There may be slight blunting of the right posterior costophrenic angle as well. No pneumothorax is seen. No acute osseous process is seen. Impression: 1. There is mildly improved aeration within the large right upper and midlung field airspace consolidation as compared to 09/29/2016. However, the findings are still markedly abnormal and consistent with pneumonia. 2. In addition, there appears to be some developing airspace disease behind the heart at the left lung base which I believe may be due to left lower lobe atelectasis, although a second focus of pneumonic infiltrate cannot be excluded. This appears to be new from 09/29/2016. 3. In addition, I believe there is mild posterior left basilar pleural effusion. Slight blunting of the right posterior lung sulcus cannot be excluded.
[2016-10-01] MEDS: ENOXAPARIN SODIUM SQ SCH (10:43)
[2016-10-01] MEDS: PROTONIX 40 MG IV IV SCH (10:43)
[2016-10-01] MEDS: ECOTRIN 81 MG PO SCH (10:43)
[2016-10-01] MEDS: Merrem 1 GM 1 G in Sodium Chloride 100ML MINI-BAG PLUS 100 ML IV SCH ×2 (10:45→22:12)
[2016-10-01] MEDS ORDERED: Cardizem CD 120 MG PO ONE (13:00)
--- NOTE | 2016-10-01 21:54 | PCM.NOTE ---
Date and Time: 10/01/162152 Subjective Assessment: doing little better, last 24 hours events noted - Review of Systems Constitutional: No Fever, No Chills Eyes: No Symptoms Ears, Nose, & Throat: No Symptoms Respiratory: Orthopnea, Short Of Breath, Wheezing, No Cough Cardiac: No Chest Pain, No Edema, No Syncope Abdominal/Gastrointestinal: No Abdominal Pain, No Nausea, No Vomiting, No Diarrhea Genitourinary Symptoms: No Dysuria Musculoskeletal: No Back Pain, No Neck Pain Skin: No Rash Neurological: No Dizziness, No Focal Weakness, No Sensory Changes Psychological: No Symptoms Endocrine: No Symptoms Hematologic/Lymphatic: No Symptoms Immunological/Allergic: No Symptoms Objective Exam General Appearance: no apparent distress, alert Neurologic Exam: alert, oriented x 3, cooperative, normal mood/affect, nml cerebellar function, sensation nml, No motor deficits Skin Exam: normal color, warm, dry Eye Exam: PERRL, EOMI, eyes nml inspection Ears, Nose, Throat Exam: normal ENT inspection, pharynx normal, moist mucous membranes Neck Exam: normal inspection, non-tender, supple, full range of motion Respiratory Exam: diminished breath sounds, prolonged expirations, crackles/ rales, rhonchi, wheezing, No respiratory distress Cardiovascular Exam: regular rate/rhythm, normal heart sounds Gastrointestinal/Abdomen Exam: soft, No tenderness, No mass Extremity Exam: normal inspection, normal range of motion Back Exam: normal inspection, normal range of motion, No CVA tenderness, No vertebral tenderness Male Genitalia Exam: deferred Rectal Exam: deferred OBJECTIVE DATA Vital Signs: Vital Signs - 24 hr Temp Pulse Resp BP BP Pulse Ox 10/01/16 20:50 82 97/77 10/01/16 20:00 98 F 78 18 119/83 92 L 10/01/16 17:42 88 20 94 L 10/01/16 15:40 98.2 F 83 18 118/82 94 L 10/01/16 15:34 90 10/01/16 14:30 88 16 94 L 10/01/16 12:00 97.9 F 96 H 17 127/89 94 L 10/01/16 11:09 92 H 20 94 L 10/01/16 08:00 97.6 F 97 H 22 105/65 95 10/01/16 07:27 88 20 94 L 10/01/16 06:00 89 19 96/73 98 07/11/17 05:10 91 H 83/60 10/01/16 04:00 98.7 F 98 H 14 93/69 95 10/01/16 03:39 97 H 21 91/65 93 L 10/01/16 03:26 95 H 19 96 10/01/16 02:49 102 H 18 89/65 97 10/01/16 02:45 99 H 20 89/65 10/01/16 02:10 134 H 83/60 10/01/16 02:00 137 H 82/67 10/01/16 01:52 139 H 84/68 10/01/16 01:30 159 H 92/65 10/01/16 01:20 144 H 86/70 10/01/16 01:10 134 H 86/72 10/01/16 01:00 147 H 90/61 10/01/16 00:50 142 H 82/68 10/01/16 00:45 144 H 18 91/63 10/01/16 00:40 144 H 91/63 10/01/16 00:00 98.4 F 168 H 22 79/61 98 09/30/16 23:59 134 H 19 89/62 09/30/16 22:59 94 H 23 98 09/30/16 22:02 87 19 80/57 97 Oxygen-Last 24 hours O2 Percentage 6 Liters = 44% O2 Percentage 80% O2 Percentage 100% O2 Percentage 100% O2 Percentage 80% O2 Percentage 80% O2 Percentage 80% O2 Percentage 80% O2 Percentage 50% O2 Percentage 50% Pain Assessment - Last Documented Pain Intensity 0 Pain Scale Used 0-10 Pain Scale Intake and Output: Intake & Output 09/29/16 09/30/16 10/01/16 10/02/16 11:59 11:59 11:59 11:59 Intake Total 876 8107 3167 Output Total 200 1065 700 Balance 676 7042 2467 Weight 64.546 kg 70.2 kg Lab Results: Lab Results-Last 24 Hours 10/01/16 10/01/16 10/01/16 Range/Units 05:22 06:00 06:00 WBC 21.0 H (4.0-10.5) K/mm3 RBC 3.43 L (4.1-5.6) M/mm3 Hgb 10.4 L (12.5-18.0) gm/dl Hct 32.6 L (42-50) % MCV 95.0 (78-100) fl MCH 30.3 (26-32) pg MCHC 31.9 L (32-36) g/dl RDW 14.3 H (11.5-14.0) % Plt Count 295 (150-450) K/mm3 MPV 10.0 H (6-9.5) fl Puncture Site RIGHT RADIAL pCO2 37 (35-45) mmHg pO2 150 H* (75-100) mmHg Base Excess -5.9 L (-2.0-2.0) O2 Saturation 94.6 (94-100) g/dF ABG pH 7.33 L (7.35-7.45) ABG HCO3 19.5 L (22-28) ABG O2 Sat (Measured) 99.1 (95-100) % Martin Test YES A-a Gradient 517 a/A Ratio 0.22 Hemoglobin 10.8 Carboxyhemoglobin 3.4 (0.0-6.9) % THgb Methemoglobin 1.1 L (1.4-1.5) % Potassium 4.7 5.0 (3.5-5.1) Temperature 37.0 C POC O2 Flow Rate 100 % Sodium 142 (136-145) mEq/L Chloride 110 H (98-107) mEq/L Carbon Dioxide 19.1 L (21-32) mEq/L Anion Gap 18.3 H (5-15) MEQ/L BUN 33 H (9-20) mg/dL Creatinine 1.24 (0.55-1.30) mg/dl Estimated GFR > 60 ML/MIN Glucose 80 (70-110) MG/DL Lactic Acid 2.3 H (0.4-2.0) Calcium 7.4 L (8.5-10.1) mg/dL Total Bilirubin 0.20 (0.2-1.0) mg/dL AST 23 (15-37) U/L ALT 15 (12-78) U/L Alkaline Phosphatase 64 (46-116) U/L Serum Total Protein 4.7 L (6.4-8.2) gm/dL Albumin 2.0 L (3.4-5.0) g/dL Radiology Exams: Radiology Procedures Category Date Time Status CHEST 2 VIEWS (PA AND LAT) Urgent Exams 10/01/16 09:22 Completed Multi-Disciplinary Progress Notes: Multi-Disciplinary Progress Notes 10/01/16 09:29 Case Management Note by Vanessa Hernandez SPOKE WITH DR. KATHLEEN, N/O RECEIVED. REPORTS THAT HE WILL BE IN TO SEE PT DURING LUNCH HOUR. Initialized on 10/01/16 09:29 - END OF NOTE Assessment/Plan (1) Pneumonia Current Visit: Yes Status: Acute Qualifiers: Pneumonia type: due to unspecified organism Laterality: right Lung location: upper lobe of lung Qualified Code(s): J18.1 - Lobar pneumonia, unspecified organism Assessment & Plan: continue present management. Code(s): J18.9 - PNEUMONIA, UNSPECIFIED ORGANISM (2) Sepsis Current Visit: Yes Status: Acute Qualifiers: Sepsis type: sepsis due to unspecified organism Qualified Code(s): A41.9 - Sepsis, unspecified organism
[2016-10-01] MEDS: CLARITIN 10 MG PO SCH (22:12)
[2016-10-01] MEDS: SODIUM CHLORIDE 0.9% IV SCH (22:12)
[2016-10-01] MEDS: VANCOCIN IV SCH (22:12)
[2016-10-02] MEDS: DUONEB 0.5-3 MG/3 ml Neb IH SCH ×7 (00:21→23:38)
[2016-10-02] MEDS ORDERED: Cardizem CD 120 MG PO ONE ×2 (03:20→13:00)
[2016-10-02] MEDS ORDERED: Cardizem 30 MG ONE ×2 (03:30)
[2016-10-02] MEDS: TYLENOL 325 MG PO SCH ×3 (03:32→20:04)
[2016-10-02] MEDS: NAPROSYN 375 MG PO SCH ×3 (03:33→20:03)
[2016-10-02] MEDS: Sodium Chloride 0.9% 1000 ML 1,000 ML IV SCH ×2 (03:45→09:14)
[2016-10-02] MEDS: solu-CORTEF 100MG IV SCH ×3 (05:40→23:37)
[2016-10-02] MEDS: Merrem 1 GM 1 G in Sodium Chloride 100ML MINI-BAG PLUS 100 ML IV SCH ×3 (05:40→22:51)
[2016-10-02 08:06] LABS: Mean Cell Volume 90.6 fl (78-100); Mean Platelet Volume 9.8 fl (6-9.5); Platelet Count 322 K/mm3 (150-450); Red Blood Count 3.95 M/mm3 (4.1-5.6); Red Cell Distribution Width 14.6 % (11.5-14.0)
[2016-10-02 08:21] LABS: ALBUMIN 1.8 g/dL (3.4-5.0); ALKALINE PHOSPHATASE 135 U/L (46-116); ANION GAP 12.1 MEQ/L (5-15); BLOOD UREA NITROGEN 33 mg/dL (9-20); CHLORIDE 113 mEq/L (98-107); Glucose 92 MG/DL (70-110); Potassium 3.9 mEq/L (3.5-5.1); SGOT/AST 27 U/L (15-37); SGPT/ALT 19 U/L (12-78); SODIUM 143 mEq/L (136-145); Total Protein 5.6 gm/dL (6.4-8.2)
[2016-10-02 08:55] LABS: Mean Corpuscular Hemoglobin 29.8 pg (26-32); White Blood Count 33.6 K/mm3 (4.0-10.5)
[2016-10-02] MEDS: ENOXAPARIN SODIUM SQ SCH (09:15)
[2016-10-02] MEDS: ECOTRIN 81 MG PO SCH (09:15)
[2016-10-02] MEDS: Cardizem CD 120 MG PO SCH (09:15)
[2016-10-02] MEDS: VANCOCIN IV SCH ×2 (09:24→23:28)
[2016-10-02] MEDS: SODIUM CHLORIDE 0.9% IV SCH ×2 (09:24→23:28)
[2016-10-02] MEDS: PROTONIX 40 MG IV IV SCH (09:48)
[2016-10-02] MEDS ORDERED: Cardizem CD 120 MG PO SCH (10:00)
--- NOTE | 2016-10-02 10:18 | XRAY ---
Exam: AP upright portable chest film from 0935 hours on 10/02/2016. Comparison: Two-view chest from 10/01/2016 and AP portable chest film from 09/29/2016. Indication: Fluid retention, shortness of breath. Findings: The film was obtained in a lordotic projection. The heart size is normal and appears midline. There again is a prominent dense peripheral consolidation within the right mid to upper lung field consistent with pneumonia. Less pronounced hazy airspace disease is seen within the remainder of the upper two thirds of the right lung. The right lung base is remarkable only for a calcified granuloma. I suspect a small amount of bibasilar pleural fluid, left greater than right. Within the left lung, there is some new increased hazy airspace disease within the left suprahilar projection and peripheral left lower lung field. This probably is due to pulmonary edema, although pneumonia cannot be radiographically excluded. Prior dense retrocardiac airspace disease is still present, but has improved slightly. No pneumothorax is seen. No acute osseous process is seen. Impression: 1. There is interval development of hazy airspace disease, primarily within the left suprahilar projection and, to a lesser extent, the peripheral left lower lung field. It is likely that this is due to pulmonary edema, although pneumonia cannot be radiographically excluded. 2. Prior retrocardiac focally dense airspace disease may be slightly improved, but the degree of difference is not much. 3. I again see a large area of dense pneumonic consolidation within the peripheral right mid to upper lung field. In addition, there is some hazy surrounding less pronounced airspace disease within the upper two thirds of the right lung which is also likely due to pulmonary edema, although pneumonia cannot be radiographically excluded.. 4. I believe there are small bibasilar pleural effusions blunting the costophrenic angles, slightly greater on the left than right. The heart size remains normal. Note: I called this report to an ICU nurse, Di, at 10:07 AM on 10/02/2016.
[2016-10-02 10:45] LABS: BAND 12 % (0.0-2.0); Promyelocyte 1 %; Total Cells Counted 100
[2016-10-02 10:46] LABS: ANISOCYTOSIS 1+; Platelet Estimate NORMAL (NORMAL); Poikilocytosis 1+; Toxic Granulation 1+
[2016-10-02] MEDS ORDERED: Lasix 40 MG/4 ML IV ONE (14:15)
--- NOTE | 2016-10-02 19:24 | PCM.NOTE ---
Date and Time: 10/02/161922 Subjective Assessment: still short of breath, - Review of Systems Constitutional: No Fever, No Chills Eyes: No Symptoms Ears, Nose, & Throat: No Symptoms Respiratory: Orthopnea, Short Of Breath, Wheezing, No Cough Cardiac: No Chest Pain, No Edema, No Syncope Abdominal/Gastrointestinal: No Abdominal Pain, No Nausea, No Vomiting, No Diarrhea Genitourinary Symptoms: No Dysuria Musculoskeletal: No Back Pain, No Neck Pain Skin: No Rash Neurological: No Dizziness, No Focal Weakness, No Sensory Changes Psychological: No Symptoms Endocrine: No Symptoms Hematologic/Lymphatic: No Symptoms Immunological/Allergic: No Symptoms Objective Exam General Appearance: no apparent distress, alert Neurologic Exam: alert, oriented x 3, cooperative, normal mood/affect, nml cerebellar function, sensation nml, No motor deficits Skin Exam: normal color, warm, dry Eye Exam: PERRL, EOMI, eyes nml inspection Ears, Nose, Throat Exam: normal ENT inspection, pharynx normal, moist mucous membranes Neck Exam: normal inspection, non-tender, supple, full range of motion Respiratory Exam: normal breath sounds, lungs clear, diminished breath sounds, crackles/rales, rhonchi, wheezing, No respiratory distress Cardiovascular Exam: regular rate/rhythm, normal heart sounds Gastrointestinal/Abdomen Exam: soft, No tenderness, No mass Extremity Exam: normal inspection, normal range of motion Back Exam: normal inspection, normal range of motion, No CVA tenderness, No vertebral tenderness Male Genitalia Exam: deferred Rectal Exam: deferred OBJECTIVE DATA Vital Signs: Vital Signs - 24 hr Temp Pulse Resp BP Pulse Ox 10/02/16 19:03 86 14 96 10/02/16 18:00 97.6 F 71 18 116/72 95 10/02/16 17:49 96 10/02/16 16:00 63 10/02/16 14:57 80 17 95 10/02/16 14:00 97.9 F 65 17 113/71 96 10/02/16 12:00 78 10/02/16 10:39 81 19 97 10/02/16 10:00 98.2 F 67 16 119/63 96 10/02/16 08:00 87 10/02/16 07:07 83 22 95 10/02/16 06:00 121 H 28 H 113/83 94 L 10/02/16 05:00 113 H 20 99/86 94 L 10/02/16 04:00 97.6 F 120 H 21 123/86 10/02/16 03:54 120 H 10/02/16 03:45 121 H 20 120/92 94 L 10/02/16 03:15 121 H 19 118/84 94 L 10/02/16 03:07 132 H 13 93 L 10/02/16 03:00 123 H 130/87 90 L 10/02/16 02:45 111 H 129/92 89 L 10/02/16 02:00 73 18 146/78 94 L 10/02/16 01:00 71 15 122/81 94 L 10/02/16 00:21 78 20 92 L 10/02/16 00:00 98.2 F 74 17 125/82 93 L 10/01/16 23:00 72 16 121/77 91 L 10/01/16 22:00 85 16 128/83 93 L 10/01/16 21:00 73 17 122/77 93 L 10/01/16 20:50 82 97/77 10/01/16 20:00 98 F 78 18 119/83 92 L Oxygen-Last 24 hours O2 Percentage 70% O2 Percentage 70% O2 Percentage 80% O2 Percentage 80% O2 Percentage 80% O2 Percentage 80% O2 Percentage 80% O2 Percentage 80% O2 Percentage 70% O2 Percentage 50% O2 Percentage 6 Liters = 44% O2 Percentage 6 Liters = 44% O2 Percentage 6 Liters = 44% O2 Percentage 6 Liters = 44% O2 Percentage 6 Liters = 44% O2 Percentage 6 Liters = 44% O2 Percentage 6 Liters = 44% Pain Assessment - Last Documented Pain Intensity 0 Pain Scale Used 0-10 Pain Scale Intake and Output: Intake & Output 09/30/16 10/01/16 10/02/16 10/03/16 11:59 11:59 11:59 11:59 Intake Total 876 8107 6864 1690 Output Total 200 1065 1500 2200 Balance 676 2534 1360 -510 Weight 64.546 kg 70.2 kg 75.6 kg Lab Results: Lab Results-Last 24 Hours 10/02/16 10/02/16 10/02/16 Range/Units 05:00 06:30 06:48 WBC 33.6 H* (4.0-10.5) K/mm3 RBC 3.95 L (4.1-5.6) M/mm3 Hgb 11.8 L (12.5-18.0) gm/dl Hct 35.8 L (42-50) % MCV 90.6 (78-100) fl MCH 29.8 (26-32) pg MCHC 33.0 (32-36) g/dl RDW 14.6 H (11.5-14.0) % Plt Count 322 (150-450) K/mm3 MPV 9.8 H (6-9.5) fl Segmented Neutrophils 75 H (36.-66.) % Band Neutrophils 12 H (0.0-2.0) % Lymphocytes (Manual) 6 L (24-44) % Monocytes (Manual) 6 (0.0-12.0) % Promyelocytes 1 % Differential Comment ABNORMAL Toxic Granulation 1+ Platelet Estimate NORMAL (NORMAL) Poikilocytosis 1+ Anisocytosis 1+ Smear Path Review Pending Sodium 143 (136-145) mEq/L Potassium 3.9 (3.5-5.1) mEq/L Chloride 113 H (98-107) mEq/L Carbon Dioxide 22.0 (21-32) mEq/L Anion Gap 12.1 (5-15) MEQ/L BUN 33 H (9-20) mg/dL Creatinine 1.09 (0.55-1.30) mg/dl Estimated GFR > 60 ML/MIN Glucose 92 (70-110) MG/DL Lactic Acid 0.9 (0.4-2.0) Calcium 8.3 L (8.5-10.1) mg/dL Total Bilirubin 0.30 (0.2-1.0) mg/dL AST 27 (15-37) U/L ALT 19 (12-78) U/L Alkaline Phosphatase 135 H (46-116) U/L NT-Pro-B Natriuret Pep (0-125) pg/ml Serum Total Protein 5.6 L (6.4-8.2) gm/dL Albumin 1.8 L (3.4-5.0) g/dL 10/02/16 Range/Units 09:00 WBC (4.0-10.5) K/mm3 RBC (4.1-5.6) M/mm3 Hgb (12.5-18.0) gm/dl Hct (42-50) % MCV (78-100) fl MCH (26-32) pg MCHC (32-36) g/dl RDW (11.5-14.0) % Plt Count (150-450) K/mm3 MPV (6-9.5) fl Segmented Neutrophils (36.-66.) % Band Neutrophils (0.0-2.0) % Lymphocytes (Manual) (24-44) % Monocytes (Manual) (0.0-12.0) % Promyelocytes % Differential Comment Toxic Granulation Platelet Estimate (NORMAL) Poikilocytosis Anisocytosis Smear Path Review Sodium (136-145) mEq/L Potassium (3.5-5.1) mEq/L Chloride (98-107) mEq/L Carbon Dioxide (21-32) mEq/L Anion Gap (5-15) MEQ/L BUN (9-20) mg/dL Creatinine (0.55-1.30) mg/dl Estimated GFR ML/MIN Glucose (70-110) MG/DL Lactic Acid (0.4-2.0) Calcium (8.5-10.1) mg/dL Total Bilirubin (0.2-1.0) mg/dL AST (15-37) U/L ALT (12-78) U/L Alkaline Phosphatase (46-116) U/L NT-Pro-B Natriuret Pep 3411 H (0-125) pg/ml Serum Total Protein (6.4-8.2) gm/dL Albumin (3.4-5.0) g/dL Radiology Exams: Radiology Procedures Category Date Time Status CHEST 1 VIEW (PORTABLE) Stat Exams 10/02/16 09:23 Completed CHEST 2 VIEWS (PA AND LAT) Urgent Exams 10/01/16 09:22 Completed Assessment/Plan (1) Pneumonia Current Visit: Yes Status: Acute Qualifiers: Pneumonia type: due to unspecified organism Laterality: right Lung location: upper lobe of lung Qualified Code(s): J18.1 - Lobar pneumonia, unspecified organism Code(s): J18.9 - PNEUMONIA, UNSPECIFIED ORGANISM (2) Sepsis Current Visit: Yes Status: Acute Qualifiers: Sepsis type: sepsis due to unspecified organism Qualified Code(s): A41.9 - Sepsis, unspecified organism
[2016-10-02] MEDS ORDERED: TROUGH DRUG LEVELS IJ ONE (21:30)
[2016-10-02] MEDS: CLARITIN 10 MG PO SCH (22:52)
[2016-10-02] MEDS ORDERED: solu-CORTEF 100MG ONE (23:30)
[2016-10-03] MEDS: NAPROSYN 375 MG PO SCH ×3 (04:12→19:06)
[2016-10-03] MEDS: TYLENOL 325 MG PO SCH ×4 (04:13→19:06)
[2016-10-03] MEDS: Merrem 1 GM 1 G in Sodium Chloride 100ML MINI-BAG PLUS 100 ML IV SCH ×3 (05:23→22:00)
[2016-10-03] MEDS: Sodium Chloride 0.9% 1000 ML 1,000 ML IV SCH (05:34)
[2016-10-03] MEDS: DUONEB 0.5-3 MG/3 ml Neb IH SCH ×6 (05:40→23:36)
[2016-10-03] MEDS: Cardizem CD 120 MG PO SCH (10:00)
[2016-10-03] MEDS: ECOTRIN 81 MG PO SCH (10:00)
[2016-10-03] MEDS: PROTONIX 40 MG IV IV SCH (10:01)
[2016-10-03] MEDS: solu-CORTEF 100MG IV SCH ×2 (10:04→22:00)
[2016-10-03] MEDS: VANCOCIN 1 GM VIAL*** 1 GM in Sodium Chloride 0.9% 250 ML 250 ML IV SCH ×2 (10:12→23:07)
[2016-10-03] MEDS: ENOXAPARIN SODIUM SQ SCH (10:14)
--- NOTE | 2016-10-03 12:10 | PCM.NOTE ---
Date and Time: 10/03/16 1210 Subjective Assessment: doing better - Review of Systems Constitutional: No Fever, No Chills Eyes: No Symptoms Ears, Nose, & Throat: No Symptoms Respiratory: No Cough, No Short Of Breath Cardiac: No Chest Pain, No Edema, No Syncope Abdominal/Gastrointestinal: No Abdominal Pain, No Nausea, No Vomiting, No Diarrhea Genitourinary Symptoms: No Dysuria Musculoskeletal: No Back Pain, No Neck Pain Skin: No Rash Neurological: No Dizziness, No Focal Weakness, No Sensory Changes Psychological: No Symptoms Endocrine: No Symptoms Hematologic/Lymphatic: No Symptoms Immunological/Allergic: No Symptoms Objective Exam General Appearance: no apparent distress, alert Neurologic Exam: alert, oriented x 3, cooperative, normal mood/affect, nml cerebellar function, sensation nml, No motor deficits Skin Exam: normal color, warm, dry Eye Exam: PERRL, EOMI, eyes nml inspection Ears, Nose, Throat Exam: normal ENT inspection, pharynx normal, moist mucous membranes Neck Exam: normal inspection, non-tender, supple, full range of motion Respiratory Exam: diminished breath sounds, prolonged expirations, crackles/ rales, rhonchi, No respiratory distress Cardiovascular Exam: regular rate/rhythm, normal heart sounds Gastrointestinal/Abdomen Exam: soft, No tenderness, No mass Extremity Exam: normal inspection, normal range of motion Back Exam: normal inspection, normal range of motion, No CVA tenderness, No vertebral tenderness Male Genitalia Exam: deferred Rectal Exam: deferred OBJECTIVE DATA Vital Signs: Vital Signs - 24 hr Temp Pulse Resp BP Pulse Ox 10/03/16 11:20 87 20 96 10/03/16 08:18 94 L 10/03/16 08:00 97.7 F 69 21 130/79 94 L 10/03/16 07:23 73 21 96 10/03/16 04:00 72 20 131/79 94 L 10/02/16 23:54 97.8 F 77 20 114/63 95 10/02/16 23:40 75 23 96 10/02/16 20:02 98.1 F 78 17 117/71 97 10/02/16 19:39 82 10/02/16 19:03 86 14 96 10/02/16 18:00 97.6 F 71 18 116/72 95 10/02/16 17:49 96 10/02/16 16:00 63 10/02/16 14:57 80 17 95 10/02/16 14:00 97.9 F 65 17 113/71 96 Oxygen-Last 24 hours O2 Percentage 5 Liters = 40% O2 Percentage 50% O2 Percentage 50% O2 Percentage 50% O2 Percentage 70% O2 Percentage 70% Pain Assessment - Last Documented Pain Intensity 0 Pain Scale Used 0-10 Pain Scale Intake and Output: Intake & Output 10/01/16 10/02/16 10/03/16 10/04/16 11:59 11:59 11:59 11:59 Intake Total 8135 5873 3074 Output Total 1065 1500 3200 Balance 7042 5364 -126 Weight 70.2 kg 75.6 kg 76.1 kg Lab Results: Lab Results-Last 24 Hours 10/02/16 10/02/16 Range/Units 06:30 21:59 WBC 33.6 H* (4.0-10.5) K/mm3 RBC 3.95 L (4.1-5.6) M/mm3 Hgb 11.8 L (12.5-18.0) gm/dl Hct 35.8 L (42-50) % MCV 90.6 (78-100) fl MCH 29.8 (26-32) pg MCHC 33.0 (32-36) g/dl RDW 14.6 H (11.5-14.0) % Plt Count 322 (150-450) K/mm3 MPV 9.8 H (6-9.5) fl Segmented Neutrophils 75 H (36.-66.) % Band Neutrophils 12 H (0.0-2.0) % Lymphocytes (Manual) 6 L (24-44) % Monocytes (Manual) 6 (0.0-12.0) % Promyelocytes 1 % Differential Comment ABNORMAL Toxic Granulation 1+ Platelet Estimate NORMAL (NORMAL) Poikilocytosis 1+ Anisocytosis 1+ Smear Path Review Vancomycin Trough 9.8 L (10-20) UG/ML Radiology Exams: Radiology Procedures Category Date Time Status CHEST 1 VIEW (PORTABLE) Stat Exams 10/02/16 09:23 Completed CHEST 2 VIEWS (PA AND LAT) Routine Exams 10/04/16 08:00 Ordered Assessment/Plan (1) Pneumonia Current Visit: Yes Status: Acute Qualifiers: Pneumonia type: due to unspecified organism Laterality: right Lung location: upper lobe of lung Qualified Code(s): J18.1 - Lobar pneumonia, unspecified organism Code(s): J18.9 - PNEUMONIA, UNSPECIFIED ORGANISM (2) Sepsis Current Visit: Yes Status: Acute Qualifiers: Sepsis type: Streptococcus, unspecified Qualified Code(s): A40.9 - Streptococcal sepsis, unspecified; A40 - Streptococcal sepsis
[2016-10-03] MEDS: Ativan 1 MG PO PRN (18:09)
[2016-10-03] MEDS: Nicoderm CQ 21 MG TOP SCH (18:53)
[2016-10-03] MEDS: CLARITIN 10 MG PO SCH (22:00)
[2016-10-04] MEDS: DUONEB 0.5-3 MG/3 ml Neb IH SCH ×6 (02:53→22:37)
[2016-10-04] MEDS: TYLENOL 325 MG PO SCH ×3 (03:05→18:04)
[2016-10-04] MEDS: NAPROSYN 375 MG PO SCH ×3 (03:06→18:04)
[2016-10-04] MEDS: Sodium Chloride 0.9% 1000 ML 1,000 ML IV SCH (04:21)
[2016-10-04 05:43] LABS: Mean Cell Volume 89.1 fl (78-100); Mean Platelet Volume 9.6 fl (6-9.5); Platelet Count 362 K/mm3 (150-450); Red Blood Count 3.77 M/mm3 (4.1-5.6); Red Cell Distribution Width 14.9 % (11.5-14.0); White Blood Count 20.9 K/mm3 (4.0-10.5)
[2016-10-04 05:49] LABS: Mean Corpuscular Hemoglobin 29.9 pg (26-32)
[2016-10-04] MEDS: Merrem 1 GM 1 G in Sodium Chloride 100ML MINI-BAG PLUS 100 ML IV SCH ×3 (05:56→22:17)
[2016-10-04 06:15] LABS: ANION GAP 11.3 MEQ/L (5-15); BLOOD UREA NITROGEN 26 mg/dL (9-20); CHLORIDE 107 mEq/L (98-107); Carbon Dioxide 28.3 mEq/L (21-32); Glucose 133 MG/DL (70-110); Potassium 3.3 mEq/L (3.5-5.1); SODIUM 143 mEq/L (136-145)
--- NOTE | 2016-10-04 08:52 | PCM.NOTE ---
Date and Time: 10/04/16 0851 Subjective Assessment: doing better - Review of Systems Constitutional: No Fever, No Chills Eyes: No Symptoms Ears, Nose, & Throat: No Symptoms Respiratory: Short Of Breath, Wheezing, No Cough Cardiac: No Chest Pain, No Edema, No Syncope Abdominal/Gastrointestinal: No Abdominal Pain, No Nausea, No Vomiting, No Diarrhea Genitourinary Symptoms: No Dysuria Musculoskeletal: No Back Pain, No Neck Pain Skin: No Rash Neurological: No Dizziness, No Focal Weakness, No Sensory Changes Psychological: No Symptoms Endocrine: No Symptoms Hematologic/Lymphatic: No Symptoms Immunological/Allergic: No Symptoms Objective Exam General Appearance: no apparent distress, alert Neurologic Exam: alert, oriented x 3, cooperative, normal mood/affect, nml cerebellar function, sensation nml, No motor deficits Skin Exam: normal color, warm, dry Eye Exam: PERRL, EOMI, eyes nml inspection Ears, Nose, Throat Exam: normal ENT inspection, pharynx normal, moist mucous membranes Neck Exam: normal inspection, non-tender, supple, full range of motion Respiratory Exam: normal breath sounds, lungs clear, No respiratory distress Cardiovascular Exam: regular rate/rhythm, normal heart sounds Gastrointestinal/Abdomen Exam: soft, No tenderness, No mass Extremity Exam: normal inspection, normal range of motion Back Exam: normal inspection, normal range of motion, No CVA tenderness, No vertebral tenderness Male Genitalia Exam: deferred Rectal Exam: deferred OBJECTIVE DATA Vital Signs: Vital Signs - 24 hr Temp Pulse Resp BP Pulse Ox 10/04/16 08:00 98 F 78 16 130/77 94 L 10/04/16 06:29 62 16 95 10/04/16 04:00 97.8 F 77 22 135/83 94 L 10/04/16 02:54 77 22 94 L 10/04/16 00:00 98.0 F 63 24 140/81 96 10/03/16 23:39 78 24 96 10/03/16 20:00 97.8 F 68 21 134/76 95 10/03/16 19:04 73 18 94 L 10/03/16 16:21 95 10/03/16 16:00 98.3 F 78 20 136/82 95 10/03/16 14:41 82 22 96 10/03/16 12:00 98.0 F 83 26 H 135/83 95 10/03/16 11:20 87 20 96 Oxygen-Last 24 hours O2 Percentage 3 Liters = 32% O2 Percentage 3 Liters = 32% O2 Percentage 4 Liters = 36% O2 Percentage 4 Liters = 36% O2 Percentage 5 Liters = 40% Pain Assessment - Last Documented Pain Intensity 0 Pain Scale Used 0-10 Pain Scale Intake and Output: Intake & Output 10/01/16 10/02/16 10/03/16 10/04/16 11:59 11:59 11:59 11:59 Intake Total 8156 6810 3074 2125 Output Total 1065 2877 3200 1675 Balance 7042 5364 -126 450 Weight 70.2 kg 75.6 kg 76.1 kg 76.1 kg Lab Results: Lab Results-Last 24 Hours 10/02/16 10/04/16 10/04/16 Range/Units 06:30 05:30 05:30 WBC 33.6 H* 20.9 H (4.0-10.5) K/mm3 RBC 3.95 L 3.77 L (4.1-5.6) M/mm3 Hgb 11.8 L 11.3 L (12.5-18.0) gm/dl Hct 35.8 L 33.6 L (42-50) % MCV 90.6 89.1 (78-100) fl MCH 29.8 29.9 (26-32) pg MCHC 33.0 33.6 (32-36) g/dl RDW 14.6 H 14.9 H (11.5-14.0) % Plt Count 322 362 (150-450) K/mm3 MPV 9.8 H 9.6 H (6-9.5) fl Segmented Neutrophils 75 H (36.-66.) % Band Neutrophils 12 H (0.0-2.0) % Lymphocytes (Manual) 6 L (24-44) % Monocytes (Manual) 6 (0.0-12.0) % Promyelocytes 1 % Differential Comment ABNORMAL Toxic Granulation 1+ Platelet Estimate NORMAL (NORMAL) Poikilocytosis 1+ Anisocytosis 1+ Smear Path Review Sodium 143 (136-145) mEq/L Potassium 3.3 L (3.5-5.1) mEq/L Chloride 107 (98-107) mEq/L Carbon Dioxide 28.3 (21-32) mEq/L Anion Gap 11.3 (5-15) MEQ/L BUN 26 H (9-20) mg/dL Creatinine 0.91 (0.55-1.30) mg/dl Estimated GFR > 60 ML/MIN Glucose 133 H (70-110) MG/DL Calcium 8.7 (8.5-10.1) mg/dL Radiology Exams: Radiology Procedures Category Date Time Status CHEST 1 VIEW (PORTABLE) Stat Exams 10/02/16 09:23 Completed CHEST 2 VIEWS (PA AND LAT) Routine Exams 10/04/16 08:00 Ordered Assessment/Plan (1) Pneumonia Current Visit: Yes Status: Acute Qualifiers: Pneumonia type: due to unspecified organism Laterality: right Lung location: upper lobe of lung Qualified Code(s): J18.1 - Lobar pneumonia, unspecified organism Code(s): J18.9 - PNEUMONIA, UNSPECIFIED ORGANISM (2) Sepsis Current Visit: Yes Status: Acute Qualifiers: Sepsis type: Streptococcus, unspecified Qualified Code(s): A40.9 - Streptococcal sepsis, unspecified; A40 - Streptococcal sepsis
--- NOTE | 2016-10-04 09:45 | XRAY ---
Indication: Fluid retention. Comparison: October 02, 2016. PA/lateral chest demonstrates moderate clearing of the previous bilateral mid to upper lung airspace disease which still persists. Also mild improvement in the previous bibasilar effusions. Heart is not enlarged. No new cardiopulmonary abnormalities.
[2016-10-04] MEDS: Cardizem CD 120 MG PO SCH (10:02)
[2016-10-04] MEDS: ECOTRIN 81 MG PO SCH (10:02)
[2016-10-04] MEDS: VANCOCIN 1 GM VIAL*** 1 GM in Sodium Chloride 0.9% 250 ML 250 ML IV SCH ×2 (10:02→23:47)
[2016-10-04] MEDS: PROTONIX 40 MG IV IV SCH (10:02)
[2016-10-04] MEDS: solu-CORTEF 100MG IV SCH ×2 (10:03→22:18)
[2016-10-04] MEDS: ENOXAPARIN SODIUM SQ SCH (10:03)
[2016-10-04] MEDS: Ativan 1 MG PO PRN ×2 (13:16→22:23)
[2016-10-04] MEDS: Nicoderm CQ 21 MG TOP SCH (18:04)
[2016-10-04] MEDS: CLARITIN 10 MG PO SCH (22:17)
[2016-10-05] MEDS: DUONEB 0.5-3 MG/3 ml Neb IH SCH ×6 (03:05→22:46)
[2016-10-05] MEDS: TYLENOL 325 MG PO SCH ×3 (03:08→20:07)
[2016-10-05] MEDS: NAPROSYN 375 MG PO SCH ×3 (03:09→20:08)
[2016-10-05] MEDS: Merrem 1 GM 1 G in Sodium Chloride 100ML MINI-BAG PLUS 100 ML IV SCH ×3 (05:58→22:08)
[2016-10-05] MEDS ORDERED: TROUGH DRUG LEVELS IJ ONE (09:30)
[2016-10-05] MEDS: Cardizem CD 240 MG PO SCH (09:51)
[2016-10-05] MEDS: ENOXAPARIN SODIUM SQ SCH (09:51)
[2016-10-05] MEDS: ECOTRIN 81 MG PO SCH (09:51)
[2016-10-05] MEDS: PROTONIX 40 MG IV IV SCH (09:51)
[2016-10-05] MEDS: solu-CORTEF 100MG IV SCH ×2 (09:52→22:13)
[2016-10-05] MEDS: Ativan 1 MG PO PRN ×2 (09:59→14:54)
[2016-10-05] MEDS: VANCOCIN 1 GM VIAL*** 1 GM in Sodium Chloride 0.9% 250 ML 250 ML IV SCH ×2 (10:59→23:19)
--- NOTE | 2016-10-05 15:58 | PROG NOTE ---
DATE: 10/05/16 Chart reviewed. Events noted. At the time of this evaluation, patient is alert, awake, and comfortable. States his shortness of breath has improved. States somewhat better. Complains of fatigue. VITALS: BP 150/74, heart rate 73, respiratory rate 18, temperature 98.6, O2 saturation 95% on 2 liters. HEENT: Normocephalic. Pallor present. No icterus noted. NECK: No JVD present. CVS: S1 and S2 present. RESPIRATORY: Breath sounds bilaterally diminished, coarse. ABDOMEN: Soft, nontender. NEURO: He is A&O X 3. EXTREMITIES: Reveals no edema on bilateral lower extremities. LABORATORY DATA: There were no new labs today. ASSESSMENT: 56 y/o male with impression: 1. PNEUMONIA. 2. STAPHYLOCOCCAL BACTEREMIA. 3. ANXIETY. PLAN: 1. Continue broad spectrum IV antibiotics and IV steroids. 2. Ambulate as tolerated. 3. Follow-up labs/x-ray in AM. 4. Likely discharge tomorrow if continues to improve. Patient's clinical condition, current work-up results available, and plan of management were discussed with patient and . They seem to be in understanding and in agreement. Discussed with patient's nurse.
[2016-10-05] MEDS: Nicoderm CQ 21 MG TOP SCH (20:18)
[2016-10-05] MEDS ORDERED: DESYREL 50 MG PO SCH (22:00)
[2016-10-05] MEDS: CLARITIN 10 MG PO SCH (22:07)
[2016-10-06] MEDS: DUONEB 0.5-3 MG/3 ml Neb IH SCH ×4 (03:18→15:00)
[2016-10-06] MEDS: TYLENOL 325 MG PO SCH ×2 (05:19→12:36)
[2016-10-06] MEDS: NAPROSYN 375 MG PO SCH ×2 (05:19→12:37)
[2016-10-06] MEDS: Merrem 1 GM 1 G in Sodium Chloride 100ML MINI-BAG PLUS 100 ML IV SCH (05:20)
[2016-10-06 06:42] LABS: Mean Cell Volume 88.7 fl (78-100); Mean Corpuscular Hemoglobin 29.2 pg (26-32); Mean Platelet Volume 9.4 fl (6-9.5); Platelet Count 445 K/mm3 (150-450); Red Blood Count 3.63 M/mm3 (4.1-5.6); Red Cell Distribution Width 14.4 % (11.5-14.0); White Blood Count 19.6 K/mm3 (4.0-10.5)
[2016-10-06 07:21] LABS: ANION GAP 7.1 MEQ/L (5-15); BLOOD UREA NITROGEN 15 mg/dL (9-20); CHLORIDE 103 mEq/L (98-107); Carbon Dioxide 35.7 mEq/L (21-32); Glucose 111 MG/DL (70-110); SODIUM 142 mEq/L (136-145)
[2016-10-06 07:27] LABS: Potassium 2.7 mEq/L (3.5-5.1)
[2016-10-06] MEDS ORDERED: Sodium Chloride 0.9% 500 ML 500 ML IV SCH (07:45)
[2016-10-06] MEDS: Sodium Chloride 0.9% 1000 ML 1,000 ML IV SCH (08:15)
[2016-10-06] MEDS: POTASSIUM CHLORIDE 20 mEq IN WATER 100ML 100 ML IV SCH ×2 (08:16→10:30)
[2016-10-06] MEDS: ECOTRIN 81 MG PO SCH (09:37)
[2016-10-06] MEDS: Cardizem CD 240 MG PO SCH (09:37)
[2016-10-06] MEDS: PROTONIX 40 MG IV IV SCH (09:37)
[2016-10-06] MEDS: ENOXAPARIN SODIUM SQ SCH (09:38)
[2016-10-06] MEDS: solu-CORTEF 100MG IV SCH (09:41)
--- NOTE | 2016-10-06 09:56 | PCM.NOTE ---
Date and Time: 10/06/16954 Subjective Assessment: doing better - Review of Systems Constitutional: No Fever, No Chills Eyes: No Symptoms Ears, Nose, & Throat: No Symptoms Respiratory: No Cough, No Short Of Breath Cardiac: No Chest Pain, No Edema, No Syncope Abdominal/Gastrointestinal: No Abdominal Pain, No Nausea, No Vomiting, No Diarrhea Genitourinary Symptoms: No Dysuria Musculoskeletal: No Back Pain, No Neck Pain Skin: No Rash Neurological: No Dizziness, No Focal Weakness, No Sensory Changes Psychological: No Symptoms Endocrine: No Symptoms Hematologic/Lymphatic: No Symptoms Immunological/Allergic: No Symptoms Objective Exam General Appearance: no apparent distress, alert Neurologic Exam: alert, oriented x 3, cooperative, normal mood/affect, nml cerebellar function, sensation nml, No motor deficits Skin Exam: normal color, warm, dry Eye Exam: PERRL, EOMI, eyes nml inspection Ears, Nose, Throat Exam: normal ENT inspection, pharynx normal, moist mucous membranes Neck Exam: normal inspection, non-tender, supple, full range of motion Respiratory Exam: normal breath sounds, lungs clear, No respiratory distress Cardiovascular Exam: regular rate/rhythm, normal heart sounds Gastrointestinal/Abdomen Exam: soft, No tenderness, No mass Extremity Exam: normal inspection, normal range of motion Back Exam: normal inspection, normal range of motion, No CVA tenderness, No vertebral tenderness Male Genitalia Exam: deferred Rectal Exam: deferred OBJECTIVE DATA Vital Signs: Vital Signs - 24 hr Temp Pulse Resp BP Pulse Ox 10/06/16 07:57 98.2 F 80 18 139/68 96 10/06/16 07:04 102 H 18 89 L 10/06/16 06:00 130/69 10/06/16 04:00 98.2 F 82 17 174/77 92 L 10/06/16 03:18 82 17 92 L 10/06/16 00:00 97.8 F 75 16 114/55 94 L 10/05/16 22:46 75 16 94 L 10/05/16 20:00 98.8 F 76 19 143/76 100 10/05/16 19:03 76 14 96 10/05/16 16:00 98.1 F 74 20 171/87 93 L 10/05/16 14:41 69 18 89 L 10/05/16 11:35 98.0 F 80 18 137/87 94 L 10/05/16 10:57 72 20 89 L Oxygen-Last 24 hours O2 Percentage 4 Liters = 36% O2 Percentage 2 Liters = 28% Pain Assessment - Last Documented Pain Intensity 3 Pain Scale Used 0-10 Pain Scale Intake and Output: Intake & Output 10/03/16 10/04/16 10/05/16 10/06/16 11:59 11:59 11:59 11:59 Intake Total 3074 2125 1330 1310 Output Total 3200 1675 2175 800 Balance -126 450 -845 510 Weight 76.1 kg 76.158 kg 77.519 kg 77.111 kg Lab Results: Lab Results-Last 24 Hours 10/05/16 10/06/16 10/06/16 Range/Units 09:40 06:20 06:20 WBC 19.6 H (4.0-10.5) K/mm3 RBC 3.63 L (4.1-5.6) M/mm3 Hgb 10.6 L (12.5-18.0) gm/dl Hct 32.2 L (42-50) % MCV 88.7 (78-100) fl MCH 29.2 (26-32) pg MCHC 32.9 (32-36) g/dl RDW 14.4 H (11.5-14.0) % Plt Count 445 (150-450) K/mm3 MPV 9.4 (6-9.5) fl Sodium 142 (136-145) mEq/L Potassium 2.7 L* (3.5-5.1) mEq/L Chloride 103 (98-107) mEq/L Carbon Dioxide 35.7 H (21-32) mEq/L Anion Gap 7.1 (5-15) MEQ/L BUN 15 (9-20) mg/dL Creatinine 0.87 (0.55-1.30) mg/dl Estimated GFR > 60 ML/MIN Glucose 111 H (70-110) MG/DL Calcium 8.6 (8.5-10.1) mg/dL Vancomycin Trough 12.2 (10-20) UG/ML Assessment/Plan (1) Pneumonia Current Visit: Yes Status: Acute Qualifiers: Pneumonia type: due to unspecified organism Laterality: right Lung location: upper lobe of lung Qualified Code(s): J18.1 - Lobar pneumonia, unspecified organism Code(s): J18.9 - PNEUMONIA, UNSPECIFIED ORGANISM (2) Sepsis Current Visit: Yes Status: Acute Qualifiers: Sepsis type: Streptococcus, unspecified Qualified Code(s): A40.9 - Streptococcal sepsis, unspecified; A40 - Streptococcal sepsis
[2016-10-06 10:17] LABS: BAND 4 % (0.0-2.0); Platelet Estimate NORMAL (NORMAL); Total Cells Counted 100; Toxic Granulation 2+
[2016-10-06] MEDS: VANCOCIN 1 GM VIAL*** 1 GM in Sodium Chloride 0.9% 250 ML 250 ML IV SCH (12:36)
--- NOTE | 2016-10-06 12:56 | PCM.DS ---
Discharge Summary Date of Admission: 09/30/16 00:40 Admitting Physician: SUNIL BARROW Primary Care Provider: SUNIL BARROW Allergies Allergies Penicillins Allergy (Verified 09/29/16 22:54) Hospital Summary - Hospital Course Hospital Course: Chief Complaint Diagnosis Shortness of Breath, pneunmonia Admission Date Date 09/30/16 Allergies Allergy/AdvReac Type Severity Reaction Status Date / Time Penicillins Allergy Verified 09/29/16 22:54 Vital Signs (Last 24 hours) Temp Pulse Resp BP Pulse Ox 10/06/16 11:55 98.4 F 80 18 148/68 93 L 10/06/16 10:18 83 18 90 L 10/06/16 07:57 98.2 F 80 18 139/68 96 10/06/16 07:04 102 H 18 89 L 10/06/16 06:00 130/69 10/06/16 04:00 98.2 F 82 17 174/77 92 L 10/06/16 03:18 82 17 92 L 10/06/16 00:00 97.8 F 75 16 114/55 94 L 10/05/16 22:46 75 16 94 L 10/05/16 20:00 98.8 F 76 19 143/76 100 10/05/16 19:03 76 14 96 10/05/16 16:00 98.1 F 74 20 171/87 93 L 10/05/16 14:41 69 18 89 L Home Medications Medication Instructions Recorded Confirmed Last Taken Type Aspirin 81 mg PO DAILY 09/29/16 09/29/16 09/28/16 History Cetirizine HCl [Zyrtec] 10 mg PO 09/29/16 09/29/16 09/28/16 History Diltiazem HCl [Cardizem Cd] 120 mg PO DAILY 09/29/16 09/29/16 09/28/16 History Losartan Potassium 50 mg PO HS 09/29/16 09/29/16 09/28/16 History Trazodone HCl 100 mg PO 09/29/16 09/29/16 09/28/16 History Current Medications Generic Name Dose Route Start Last Admin Trade Name Freq PRN Reason Stop Dose Admin Acetaminophen 650 mg 09/30/16 19:00 10/06/16 12:36 Tylenol 325 Mg PO 10/30/16 18:59 650 mg Q8H KATHY Administration Albuterol/Ipratropium 3 ml 09/30/16 00:56 09/30/16 03:30 Duoneb 0.5-3 Mg/3 Ml Neb 10/30/16 00:55 3 ml Q4HPRN PRN Administration SHORTNESS OF BREATH/WHEEZING Albuterol/Ipratropium 3 ml 09/30/16 07:00 10/06/16 10:18 Duoneb 0.5-3 Mg/3 Ml Neb 10/30/16 06:59 3 ml Q4HRT KATHY Administration Aspirin 81 mg 09/30/16 10:00 10/06/16 09:37 Ecotrin 81 Mg PO 10/30/16 09:59 81 mg DAILY KATHY Administration Diltiazem HCl 240 mg 10/05/16 10:00 10/06/16 09:37 Cardizem Cd 240 Mg PO 11/04/16 09:59 240 mg DAILY KATHY Administration Enoxaparin Sodium 40 mg 09/30/16 10:00 10/06/16 09:38 Enoxaparin Sodium SQ 10/30/16 09:59 Not Given DAILY KATHY Hydrocortisone Sodium Succinate 50 mg 10/02/16 22:00 10/06/16 09:41 Solu-Cortef 100mg IV 11/01/16 21:59 50 mg Q12H KATHY Administration Sodium Chloride 1,000 mls @ 50 mls/hr 09/30/16 11:15 10/06/16 08:15 Sodium Chloride 0.9% 1000 Ml IV 10/30/16 11:14 200 mls/hr .Q20H KATHY Administration Meropenem 1 g/ Sodium Chloride 100 mls @ 100 mls/hr 10/01/16 10:15 10/06/16 05:20 IV 10/31/16 10:14 100 mls/hr Q8HT KATHY Administration Vancomycin HCl 1 gm/ Sodium 250 mls @ 167 mls/hr 10/03/16 10:00 10/06/16 12: 36 Chloride IV 11/02/16 09:59 167 mls/hr Q12HT KATHY Administration Loratadine 10 mg 09/30/16 22:00 10/05/16 22:07 Claritin 10 Mg PO 10/30/16 21:59 10 mg HS KATHY Administration Lorazepam 1 mg 10/03/16 18:04 10/05/16 14:54 Ativan 1 Mg PO 11/02/16 18:03 1 mg Q6H PRN PRN Administration ANXIETY Naproxen 375 mg 09/30/16 19:00 10/06/16 12:37 Naprosyn 375 Mg PO 10/30/16 18:59 375 mg Q8H KATHY Administration Nicotine 21 mg 10/03/16 18:15 10/05/16 20:18 Nicoderm Cq 21 Mg TOP 11/02/16 18:14 Not Given Q24H KATHY Ondansetron HCl 4 mg 10/01/16 01:37 10/01/16 01:59 Zofran 4 Mg/2 Ml Vial IV 10/31/16 01:36 4 mg Q6H PRN PRN Administration NAUSEA/VOMITING Pantoprazole Sodium 40 mg 10/01/16 10:00 10/06/16 09:37 Protonix 40 Mg Iv IV 10/30/16 05:44 40 mg Q24H10 KATHY Administration Trazodone HCl 100 mg 10/05/16 22:00 10/05/16 22:07 Desyrel 50 Mg PO 11/04/16 21:59 100 mg HS KATHY Administration Discontinued Medications Generic Name Dose Route Start Last Admin Trade Name Freq PRN Reason Stop Dose Admin Acetaminophen 650 mg 09/30/16 00:56 09/30/16 11:47 Tylenol 325 Mg PO 10/30/16 00:55 650 mg Q4H PRN PRN Administration PAIN AND/OR FEVER Hydrocodone Bitart/Acetaminophen Confirm 09/30/16 00:33 [place] 5/325 Mg Administered 09/30/16 00:34 Dose 1 tab .ROUTE .STK-MED ONE Hydrocodone Bitart/Acetaminophen 1 tab 09/30/16 01:03 09/30/16 14:17 [place] 5/325 Mg PO 10/05/16 01:02 1 tab Q4H PRN PRN Administration PAIN Albuterol/Ipratropium 3 ml 09/29/16 22:59 09/29/16 23:17 Duoneb 0.5-3 Mg/3 Ml Neb IH 09/29/16 23:00 3 ml STAT ONE Administration Albuterol/Ipratropium Confirm 09/29/16 23:14 Duoneb 0.5-3 Mg/3 Ml Neb Administered 09/29/16 23:15 Dose 3 ml IH .STK-MED ONE Diltiazem HCl 120 mg 10/02/16 10:00 Cardizem Cd 120 Mg PO 11/01/16 09:59 DAILY KATHY Diltiazem HCl 120 mg 10/02/16 13:00 Cardizem Cd 120 Mg PO 10/02/16 13:01 NOW ONE Diltiazem HCl 120 mg 10/01/16 13:00 10/01/16 12:59 Cardizem Cd 120 Mg PO 10/01/16 13:01 120 mg NOW ONE Administration Diltiazem HCl 120 mg 10/02/16 03:20 10/02/16 03:44 Cardizem Cd 120 Mg PO 10/02/16 03:21 120 mg ONCE ONE Administration Diltiazem HCl 240 mg 10/02/16 10:00 10/04/16 10:02 Cardizem Cd 120 Mg PO 11/01/16 09:59 240 mg DAILY KATHY Administration Diltiazem HCl Confirm 10/02/16 03:30 Cardizem 30 Mg Administered 10/02/16 03:31 Dose 30 mg .ROUTE .STK-MED ONE Diltiazem HCl Confirm 10/02/16 03:30 Cardizem 30 Mg Administered 10/02/16 03:31 Dose 90 mg .ROUTE .STK-MED ONE Furosemide 40 mg 10/02/16 14:15 10/02/16 14:31 Lasix 40 Mg/4 Ml IV 10/02/16 14:16 40 mg STAT ONE Administration Hydrocortisone Sodium Succinate 50 mg 09/30/16 05:45 09/30/16 06:19 Solu-Cortef 100mg IV 10/30/16 05:44 50 mg Q6H KATHY Administration Hydrocortisone Sodium Succinate 50 mg 09/30/16 12:00 10/02/16 12:20 Solu-Cortef 100mg IV 10/30/16 11:59 50 mg Q6HT KATHY Administration Hydrocortisone Sodium Succinate Confirm 09/30/16 06:10 Solu-Cortef 100mg Administered 09/30/16 06:11 Dose 100 mg .ROUTE .STK-MED ONE Hydrocortisone Sodium Succinate Confirm 10/01/16 05:58 Solu-Cortef 100mg Administered 10/01/16 05:59 Dose 100 mg .ROUTE .STK-MED ONE Hydrocortisone Sodium Succinate Confirm 10/02/16 23:30 Solu-Cortef 100mg Administered 10/02/16 23:31 Dose 100 mg .ROUTE .STK-MED ONE Sodium Chloride 1,000 mls @ 999 mls/hr 09/29/16 22:58 09/29/16 23:04 Sodium Chloride 0.9% 1000 Ml IV 09/29/16 23:58 999 mls/hr .Q1H1M STA Administration Sodium Chloride Confirm 09/29/16 23:03 Sodium Chloride 0.9% 1000 Ml Administered 09/29/16 23:04 Dose 1,000 mls @ ud .ROUTE .STK-MED ONE Sodium Chloride 1,000 mls @ 999 mls/hr 09/29/16 23:14 09/29/16 23:20 Sodium Chloride 0.9% 1000 Ml IV 09/30/16 00:14 999 mls/hr .Q1H1M STA Administration Sodium Chloride Confirm 09/29/16 23:20 Sodium Chloride 0.9% 1000 Ml Administered 09/29/16 23:21 Dose 1,000 mls @ ud .ROUTE .STK-MED ONE Piperacillin Sod/Tazobactam Sod 3.375 gm in 100 mls @ 200 mls/hr 09/29/16 23: 33 09/29/16 23:47 Zosyn 3.375gm/100 Ml D5w IV 09/30/16 00:02 200 mls/hr STAT STA Administration Piperacillin Sod/Tazobactam Sod Confirm 09/29/16 23:43 Zosyn 3.375gm/100 Ml D5w Administered 09/29/16 23:44 Dose 3.375 gm in 100 mls @ ud IV .STK-MED ONE Azithromycin 500 mg in 250 mls @ 250 mls/hr 09/30/16 10:00 09/30/16 01:13 Zithromax 500 Mg/ 250 Ml Nacl Premix IV 10/30/16 09:59 250 mls/hr Q24H10 KATHY Administration Piperacillin Sod/Tazobactam Sod 3.375 gm in 100 mls @ 200 mls/hr 09/30/16 06: 00 09/30/16 05:29 Zosyn 3.375gm/100 Ml D5w IV 10/30/16 05:59 200 mls/hr Q6HT KATHY Administration Sodium Chloride 1,000 mls @ 125 mls/hr 09/30/16 00:56 09/30/16 01:05 Sodium Chloride 0.9% 1000 Ml IV 10/30/16 00:55 125 mls/hr .Q8H KATHY Administration Sodium Chloride 1,000 mls @ 100 mls/hr 09/30/16 01:45 Sodium Chloride 0.9% 1000 Ml IV 10/30/16 01:44 .Q10H KATHY Lactated Ringer's 500 mls @ 500 mls/hr 09/30/16 05:54 09/30/16 06:19 Lactated Ringers IV 09/30/16 06:53 500 mls/hr .Q1H ONE Administration Dextrose/Sodium Chloride 1,000 mls @ 100 mls/hr 09/30/16 06:00 09/30/16 06:49 Dextrose 5% -0.45 Nacl 1000 Ml IV 10/30/16 05:59 100 mls/hr .Q10H KATHY Administration Lactated Ringer's Confirm 09/30/16 06:10 Lactated Ringers Administered 09/30/16 06:11 Dose 1,000 mls @ ud IV .STK-MED ONE Piperacillin Sod/Tazobactam Sod Confirm 09/30/16 05:25 Zosyn 3.375gm/100 Ml D5w Administered 09/30/16 05:26 Dose 3.375 gm in 100 mls @ ud IV .STK-MED ONE Ceftriaxone Sodium/Dextrose 2 g in 50 mls @ 100 mls/hr 09/30/16 10:00 09:54 Rocephin 2 Gm-D5w 50ml Bag IV 10/30/16 09:59 100 mls/hr Q24H10 KATHY Administration Azithromycin 500 mg in 250 mls @ 250 mls/hr 09/30/16 22:00 09/30/16 22:55 Zithromax 500 Mg/ 250 Ml Nacl Premix IV 10/30/16 09:59 250 mls/hr QPM KATHY Administration Azithromycin Confirm 09/30/16 01:11 Zithromax 500 Mg/ 250 Ml Nacl Premix Administered 09/30/16 01:12 Dose 500 mg in 250 mls @ ud IV .STK-MED ONE Sodium Chloride 1,000 mls @ 999 mls/hr 09/30/16 13:44 09/30/16 14:45 Sodium Chloride 0.9% 1000 Ml IV 09/30/16 15:44 999 mls/hr .Q1H1M KATHY Administration Diltiazem HCl 100 mls @ 5 mls/hr 09/30/16 23:44 10/01/16 05:08 Cardizem Drip 100 Mg/100 Ml D5w IV 10/30/16 23:43 2.5 mg/hr .Q20H PRN 2.5 mls/hr AFIB RVR Titration Protocol 5 MG/HR Sodium Chloride 1,000 mls @ 999 mls/hr 09/30/16 23:50 10/01/16 01:59 Sodium Chloride 0.9% 1000 Ml IV 10/01/16 00:50 999 mls/hr .Q1H1M STA Administration Sodium Chloride 1,000 mls @ 999 mls/hr 10/01/16 01:39 10/01/16 02:00 Sodium Chloride 0.9% 1000 Ml IV 10/01/16 02:39 999 mls/hr .Q1H1M STA Administration Vancomycin HCl 1 gm/ Sodium 250 mls @ 167 mls/hr 10/01/16 10:15 10/01/16 10: 43 Chloride IV 10/01/16 11:44 167 mls/hr NOW ONE Administration Vancomycin HCl 0.8 gm/ Sodium 250 mls @ 167 mls/hr 10/01/16 22:00 10/02/16 23 :28 Chloride IV 10/31/16 21:59 167 mls/hr Q12HT KATHY Administration Potassium Chloride 100 mls @ 50 mls/hr 10/06/16 07:45 10/06/16 10:30 Potassium Chloride 20 Meq In Water 100ml IV 10/06/16 11:44 50 mls/hr Q2H KATHY Administration Naproxen Confirm 09/30/16 18:20 Naprosyn 500 Mg Administered 09/30/16 18:21 Dose 500 mg .ROUTE .STK-MED ONE Naproxen Confirm 10/01/16 03:09 Naprosyn 500 Mg Administered 10/01/16 03:10 Dose 500 mg .ROUTE .STK-MED ONE Non-Formulary Medication 1 each 10/01/16 09:26 10/01/16 19:33 Pharmacy Dosing Request [facility] 10/01/16 09:27 1 each STAT ONE Administration Non-Formulary Medication 1 each 10/01/16 09:26 10/01/16 19:34 Pharmacy Dosing Required: Vancomycin IV 10/01/16 09:27 1 each STAT ONE Administration Pantoprazole Sodium 40 mg 09/30/16 05:45 09/30/16 06:19 Protonix 40 Mg Iv IV 10/30/16 05:44 40 mg Q24H KATHY Administration Pantoprazole Sodium Confirm 09/30/16 06:10 Protonix 40 Mg Iv Administered 09/30/16 06:11 Dose 40 mg IV .STK-MED ONE Intake & Output (Last 24 hours) 10/04/16 10/05/16 10/06/16 10/07/16 11:59 11:59 11:59 11:59 Intake Total 2125 1330 1310 Output Total 1675 2175 800 Balance 450 -845 510 Weight 76.158 kg 77.519 kg 77.111 kg Microbiology Results (Last 24 hours) 09/29/16 00:00 Sputum - Expectorant Gram Stain - Final 09/29/16 00:00 Sputum - Expectorant Sputum Culture - Final SEE SEPARATE REPORT FOR FINAL REFERENCE LAB RESULT 09/29/16 00:00 Sputum - Expectorant Organism ID and Sensitivity - Final Laboratory Results (Last 24 hours) 10/06/16 10/06/16 06:20 06:20 WBC 19.6 H RBC 3.63 L Hgb 10.6 L Hct 32.2 L MCV 88.7 MCH 29.2 MCHC 32.9 RDW 14.4 H Plt Count 445 MPV 9.4 Segmented Neutrophils 81 H Band Neutrophils 4 H Lymphocytes (Manual) 8 L Monocytes (Manual) 7 Differential Comment NORMAL Toxic Granulation 2+ Platelet Estimate NORMAL Sodium 142 Potassium 2.7 L* Chloride 103 Carbon Dioxide 35.7 H Anion Gap 7.1 BUN 15 Creatinine 0.87 Estimated GFR > 60 Glucose 111 H Calcium 8.6 Orders (Last 24 hours) Category Date Time Status Ambulate Patient ROUTINE Care 10/06/16 10:01 Active BMP AM.LAB Lab 10/06/16 06:20 Completed CBC W DIFF AM.LAB Lab 10/06/16 06:20 Completed Manual Differential NC Routine Lab 10/06/16 06:20 Completed Pot [Potassium] Urgent Lab 10/06/16 14:30 Ordered Potassium Chloride 20Meq/100Ml [POTASSIUM CHLORIDE 20 Med 10/06/16 07:45 Discontinued mEq IN WATER 100ML] 100 ml IV Q2H Trazodone HCl 50 mg [Desyrel 50 mg] Med 10/05/16 22:00 Active 100 mg PO HS Patient Care Notes (Last 24 hours) 10/06/16 11:17 Case Management Note by Vanessa Hernandez REVIEWED DISCHARGE PLAN. PROVIDES SELF CARE, INDEPENDENT WITH ALL ADL'S. DECLINED NEEDS FOR DISCHARGE. PLAN TO RETURN HOME WITH TO PRE EPISODIC LEVEL OF FNX. Initialized on 10/06/16 11:17 - END OF NOTE 10/06/16 10:00 Nursing Note by Damaris Mcconnell While rounding with dr. barrow the plans are to d/c the patient home after post K+ results are reported. Pt is happy with this. Pt does not need a repeat chest xaray this am however does need to ambulate before discharge Initialized on 10/06/16 10:00 - END OF NOTE 10/05/16 17:21 Nursing Note by Anushka Wisdom Dr. rounded around 1200, see new order for chest x ray tomorrow. after MD left pt asked nurse if he could have anything for his restless legs. nurse noted no prn or kathy med on MAY, pt stated he takes trazodone at night for it. nurse noted trazodone is on home med list but not ordered. nurse assured pt that when Dr. Yo Meza was called she would ask her for order for trazodone. nurse waited for another pts lab results to be turned out, called MD and got order for trazodone HS as on home med list. pt was crying at one point, given ativan an hour early (see MAY) and pts came back and took him for a ride in a wheelchair. pt and informed of trazodone order. pt ate well at supper and is resting quietly now. Initialized on 10/05/16 17:21 - END OF NOTE - Vitals & Intake/Output Vital Signs: Vital Signs Temperature 98.4 F 10/06/16 11:55 Pulse Rate 80 10/06/16 11:55 Respiratory Rate 18 10/06/16 11:55 Blood Pressure 148/68 10/06/16 11:55 O2 Sat by Pulse Oximetry 93 L 10/06/16 11:55 Oxygen-Last Documented O2 Percentage 4 Liters = 36% Intake & Output: Intake & Output 10/04/16 10/05/16 10/06/16 10/07/16 11:59 11:59 11:59 11:59 Intake Total 2125 1330 1310 Output Total 1675 2175 800 Balance 450 -845 510 Weight 76.158 kg 77.519 kg 77.111 kg - Lab Result Diagrams: 10/06/16 06:20 10/06/16 06:20 Lab Results-Last 24 Hrs: Lab Results-Last 24 Hours 10/06/16 10/06/16 Range/Units 06:20 06:20 WBC 19.6 H (4.0-10.5) K/mm3 RBC 3.63 L (4.1-5.6) M/mm3 Hgb 10.6 L (12.5-18.0) gm/dl Hct 32.2 L (42-50) % MCV 88.7 (78-100) fl MCH 29.2 (26-32) pg MCHC 32.9 (32-36) g/dl RDW 14.4 H (11.5-14.0) % Plt Count 445 (150-450) K/mm3 MPV 9.4 (6-9.5) fl Segmented Neutrophils 81 H (36.-66.) % Band Neutrophils 4 H (0.0-2.0) % Lymphocytes (Manual) 8 L (24-44) % Monocytes (Manual) 7 (0.0-12.0) % Differential Comment NORMAL Toxic Granulation 2+ Platelet Estimate NORMAL (NORMAL) Sodium 142 (136-145) mEq/L Potassium 2.7 L* (3.5-5.1) mEq/L Chloride 103 (98-107) mEq/L Carbon Dioxide 35.7 H (21-32) mEq/L Anion Gap 7.1 (5-15) MEQ/L BUN 15 (9-20) mg/dL Creatinine 0.87 (0.55-1.30) mg/dl Estimated GFR > 60 ML/MIN Glucose 111 H (70-110) MG/DL Calcium 8.6 (8.5-10.1) mg/dL Micro Results-Entire Visit: Microbiology 09/30/16 18:22 Urine Culture - Final Catherized NO GROWTH - Procedures and Test Procedures and Tests throughout Hospitalization: Therapy Orders & Screens 09/30/16 00:56 Oxygen NASAL CANNULA 4 lpm Comment: Diagnosis: Shortness of Breath 09/30/16 01:49 Smoking Cessation Education ONCE Comment: Diagnosis: Shortness of Breath, pneunmonia Smoking Status: Current every day smoker How long have you smoked: 40 yrs Approximately how many cigarettes per day: 1 pack Do you dip or chew tobacco: No 09/30/16 01:54 BiPap/CPAP Assessment ROUTINE Comment: Diagnosis: Shortness of Breath, pneunmonia 09/30/16 03:29 neb [Respiratory Nebulizer] UD Comment: Diagnosis: Shortness of Breath, pneunmonia 09/30/16 23:47 EKG STAT Comment: Diagnosis: Shortness of Breath, pneunmonia 10/01/16 09:30 RT Miscellaneous Order ROUTINE Comment: Physician Instructions: CONTINUE BIPAP PRN Reason For Exam: Diagnosis: Shortness of Breath, pneunmonia 10/02/16 03:04 EKG ASORD Comment: Diagnosis: Shortness of Breath, pneunmonia 10/04/16 10:16 PT Eval & Treat ( Order) ROUTINE Evaluate: Yes Treat: Yes Reason for Eval:: DECONDITIONING R/T SEPSIS/PNEUMONIA HX: SMOKER Diagnosis: Shortness of Breath, pneunmonia RT Miscellaneous Order ROUTINE Comment: Physician Instructions: Reason For Exam: FLUTTER VALVE THERAPY Diagnosis: Shortness of Breath, pneunmonia 10/04/16 14:06 RT Miscellaneous Order ROUTINE Comment: Physician Instructions: Reason For Exam: WEAN OXYGEN TO KEEP SPO2 > 92 Diagnosis: Shortness of Breath, pneunmonia Discharge Exam General Appearance: no apparent distress, alert Neurologic Exam: alert, oriented x 3, cooperative, normal mood/affect, nml cerebellar function, sensation nml, No motor deficits Skin Exam: normal color, warm, dry Eye Exam: PERRL, EOMI, eyes nml inspection Ears, Nose, Throat Exam: normal ENT inspection, pharynx normal, moist mucous membranes Neck Exam: normal inspection, non-tender, supple, full range of motion Respiratory Exam: wheezing, No respiratory distress Cardiovascular Exam: regular rate/rhythm, normal heart sounds Gastrointestinal/Abdomen Exam: soft, No tenderness, No mass Extremity Exam: normal inspection, normal range of motion Back Exam: normal inspection, normal range of motion, No CVA tenderness, No vertebral tenderness Male Genitalia Exam: deferred Rectal Exam: deferred Final Diagnosis/Problem List - Final Discharge Diagnosis/Problem (1) Pneumonia Current Visit: Yes Status: Resolved (2) Sepsis Current Visit: Yes Status: Resolved (3) Hypokalemia Current Visit: Yes Status: Resolved (4) Tobacco abuse Current Visit: Yes Status: Chronic (5) COPD (chronic obstructive pulmonary disease) Current Visit: Yes Status: Chronic - Discharge Discharge Date: 10/06/16 Disposition: Home, Self-Care Condition: Stable Prescriptions: New Fluticasone Furoate [Arnuity Ellipta] 100 mcg IH BID #1 blst.w.dev Diltiazem HCl 240 mg [Cardizem CD 240 MG] 240 mg PO DAILY #0 cap Albuterol/Ipratropium 3ml Neb* [DUONEB 0.5-3 MG/3 ml Neb] 3 ml IH QID #120 ampul.neb Levofloxacin [Levaquin] 500 mg PO DAILY #7 tablet Continue Losartan Potassium 50 mg PO HS Trazodone HCl 100 mg PO HS Aspirin 81 mg PO DAILY Cetirizine HCl [Zyrtec] 10 mg PO HS Discontinued Diltiazem HCl [Cardizem Cd] 120 mg PO DAILY Follow up with: SUNIL BARROW MD [Primary Care Provider] - 1 Week Forms: Patient Portal Information
[2016-10-06 16:07] VITALS: BP 134/71; PULSE 82; O2SAT 92
== END 2016-10-06 16:24 | disposition home or self-care (01) | DRG 193 ==
LOC: ED 22:42 → ICU 09-30 00:40 → MED SURG 10-03 14:00
PROVIDERS: ADMIT General Practice; ATTEND General Practice
DX: J18.1 Lobar pneumonia, unspecified organism (principal); A41.9 Sepsis, unspecified organism; N17.9 Acute kidney failure, unspecified; E87.2 Acidosis; E87.6 Hypokalemia; Z71.0 Person encountering health services to consult on behalf of another person; J44.9 Chronic obstructive pulmonary disease, unspecified; B95.8 Unspecified staphylococcus as the cause of diseases classified elsewhere; F41.9 Anxiety disorder, unspecified; Z79.899 Other long term (current) drug therapy
CPT/HCPCS: 36000; 36415; 36600; 71010; 71020; 80048; 80053; 80202; 81000; 82375; 82803; 82805; 83605; 83880; 84132; 84484; 85025; 85027; 85610; 85730; 87040; 87070; 87077; 87086; 87430; 87493; 93005; 93041; 94002; 94003; 94640; 94760; 96360; 96365; 96368; 99285; J0456; J0696; J1650; J1720; J1940; J2405; J2543; J3370; J3480; A9270-GY